=== PATIENT | male | born 1965 | race Caucasian/White ===

== ENCOUNTER 2022-02-09 07:56 | Outpatient (CLI) | payer MEDICARE, MEDICAID, SELFPAY | END 2022-02-09 07:57 | disposition home or self-care (01) | PROVIDERS: Visit Provider Surgery | DX: L89.154 Pressure ulcer of sacral region, stage 4 (principal); G80.9 Cerebral palsy, unspecified | CPT/HCPCS: 11042; 99203; 99205 ==

== ENCOUNTER 2022-02-16 09:50 | Outpatient (CLI) | payer MEDICARE, MEDICAID, SELFPAY | END 2022-02-16 09:51 | disposition home or self-care (01) | LOC: WOUND 09:51 | PROVIDERS: Visit Provider Surgery | DX: L89.154 Pressure ulcer of sacral region, stage 4 (principal); G80.9 Cerebral palsy, unspecified | CPT/HCPCS: 11042 ==

== ENCOUNTER 2022-02-23 09:48 | Outpatient (CLI) | payer MEDICARE, MEDICAID, SELFPAY ==
--- NOTE | 2022-02-23 10:52 | P.GSHP_ITS ---
History of Present Illness History of Present Illness Date Seen: 02/23/22 Chief complaint: wound infection Narrative: Aditya Bearden is a 56 year old male who presented to wound clinic for a scheduled appointment. He has a stage 4 decubitus ulcer of the coccyx and was 1st seen at the wound clinic on 02/09/2022. He has undergone 2 debridements at bedside and further workup with an MRI of the pelvis secondary to concern for involvement of the bone. An MRI was obtained, which did demonstrate osteomyelitis of the coccyx and sacrum. The patient has cerebral palsy and is nonverbal. He is bed bound, but sits up in a chair for meals and transfers via wheelchair. A nurse is present from his long-term, who states that he has been having fevers (T-max 101.3?) that started 2 days earlier. This fevers have been controlled with Tylenol. He is otherwise eating okay and having bowel mo vements. He does seem to be having increased tenderness and drainage from his decubitus ulcer. There is also a foul odor. Review of Systems Status of ROS: Reports: unobtainable due to medical condition and unobtainable due to mental status [facility] Medical History (Updated 02/23/22 @ 15:09 by Delfina Antonio MD) Cerebral palsy Constipation, chronic Epilepsy Osteopenia Periodontal disease Surgical History (Updated 02/23/22 @ 15:18 by Delfina Antonio MD) H/O parathyroidectomy Social History Highest level of school completed/degree received: don't know Smoking Status: Unknown if ever smoked How often do you have a drink containing alcohol: never How often do you have six or more drinks on one occasion: Never AUDIT-C Alcohol total score: 0 service: No Meds Home Medications and Allergies Home Medications Medication Instructions Recorded Confirmed Type calcium carbonate 600 mg-vitamin 1 tab PO DAILY 02/23/22 02/23/22 History D3 10 mcg (400 unit) tablet carbamide peroxide 6.5 % ear drops 5 drp otic (ear) HS PRN 02/23/22 02/23/22 History (Ear Drops (carbamide peroxide)) chlorhexidine gluconate 0.12 % 30 ml buccal DAILY 02/23/22 02/23/22 History mouthwash docusate sodium 100 mg capsule 100 mg PO TID 02/23/22 02/23/22 History fluoride (sodium) 1.1 % dental gel 1 applic dental HS 02/23/22 02/23/22 History lamotrigine 100 mg tablet 100 mg PO TID 02/23/22 02/23/22 History lorazepam 1 mg tablet 1 mg PO PRN 02/23/22 02/23/22 History mirtazapine 15 mg tablet 15 mg PO HS 02/23/22 02/23/22 History polyethylene glycol 3350 17 17 g PO QPM 02/23/22 02/23/22 History gram/dose oral powder sodium phosphates 19 gram-7 118 ml RI DAILY PRN constipation 02/23/22 02/23/22 History gram/118 mL enema (Enema Disposable) Allergies Allergy/AdvReac Type Severity Reaction Status Date / Time erythromycin base Allergy Unknown Verified 02/23/22 13:19 sulfamethoxazole Allergy Unknown Verified 02/23/22 13:18 [From Bactrim] terfenadine [From Seldane] Allergy Unknown Verified 02/23/22 13:19 trimethoprim [From Bactrim] Allergy Unknown Verified 02/23/22 13:18 Exam Narrative: Exam Narrative: General: Patient nontoxic, nonverbal and non aware. Lying in bed. Respiratory: Equal breath rise bilaterally, maintained on room air CV: Regular rhythm rate, well perfused Abdomen: Soft, nontender, nondistended Genitourinary: Decubitus ulcer, stage IV of the coccyx. Underlying bone palpated an area very tender to palpation. There is tunneling at 12:00 p.m. with associated necrotic tissue and some purulent drainage noted. No undrained fluid cavities. Foul odor. Some surrounding erythema and induration. Overall tenderness during examination and at the wound base. Results Results Labs: No evidence of leukocytosis. CRP is elevated at 6 and ESR pending. BMP is still pending. Additional studies: MRI of the pelvis demonstrates posterior pelvic decubitus ulcer with underlying coccygeal osteomyelitis and osteomyelitis of the 5th sacral segment. Muscle changes consistent with myositis also present. Assessment and Plan Assessment and plan (1) Osteomyelitis: Status: Acute Plan Patient is a 56-year-old male, nonverbal and bed-bound secondary to cerebral palsy, who presented to Wound Clinic for check of his sacral decubitus ulcer. Evidence on examination of a moderate amount of necrotic tissue and foul odor. Workup done with an MRI of the pelvis, which demonstrates an underlying osteomyelitis. Given the patient's clinical symptoms of increasing tenderness, foul odor, increased drainage and fevers will start some IV antibiotics. Will plan for broad-spectrum and narrow as appropriate per cultures. Patient will likely need a prolonged course of IV antibiotics, 4-6 weeks, so will also pursue PICC line placement during this hospital stay. Given the extent of necrosis present on the wound bed, will plan for debridement in the operating room under mac anesthesia. Patient to be NPO at midnight and plan to take to the OR tomorrow morning. He has been consented by his guardian, Ivis (mom) over the phone. The hospitalist has been consulted and is following, appreciate their assistance with his medical comorbidities and other cares.
[2022-02-23 11:49] LABS: SARS PCR* Negative SARS-CoV-2 (Negative)
== END 2022-02-23 09:49 | disposition home or self-care (01) ==
PROVIDERS: Visit Provider Surgery
DX: M46.28 Osteomyelitis of vertebra, sacral and sacrococcygeal region (principal); L89.154 Pressure ulcer of sacral region, stage 4; G80.9 Cerebral palsy, unspecified
CPT/HCPCS: 85025; 85651; 86140; 87040; 87186; 87205; 87635; 99215

== ENCOUNTER 2022-02-23 12:25 | Inpatient (IN) | payer MEDICARE, MEDICAID, SELFPAY ==
[2022-02-23 13:00] VITALS: PULSE 72; RESP 18; TEMP 37.6; O2SAT 97; BMI 21.2
--- NOTE | 2022-02-23 14:39 | P.IMCN_ITS ---
Date of Consult Consult date: 02/23/22 Requesting Physician: General Surgery Consult Narrative Reason for consult: Medical management of comorbidities Narrative: Aditya Bearden is a 56 year old male was direct admitted to the hospital today by Dr. Ramos of general surgery after being seen in the Wound Care Clinic. History is primarily gleaned from chart review, given patient's nonverbal status. Patient has had a sacral wound for approximately 3 weeks, seen in the Wound Clinic today with concerns of sacral osteomyelitis. Cultures were collected in clinic, and surgery is planned for tomorrow morning for an I&D. Hospitalist team was consulted given comorbidities and need for long-term IV antibiotics. Patient's past medical history includes cerebral palsy, seizure disorder, history of hypercalcemia secondary to hyperparathyroidism, nonverbal status, periodontal disease, and chronic constipation. He had acute kidney injury in 2018, but creatinine since then has been normal. Aditya had a parathyroidectomy in 2010, no reports of operative or anesthesia complications. Patient lives in a half-way in [place]. His primary nurse is Aure ([phone]), mother Ivis ([phone]) is medical decision maker and POA. He is in a motorized wheelchair, diet is minced and moist, as well as thickened. Aure states that patient has done well with NPO status in the past when needed, he is also tolerated IV access in the past. He is on no blood thinners. He typically does not have any movements or behaviors that indicate pain. He enjoys watching television. Review of Systems Status of ROS: Reports: unobtainable due to medical condition [facility] Medical History (Updated 02/23/22 @ 15:09 by Delfina Antonio MD) Cerebral palsy Constipation, chronic Epilepsy Osteopenia Periodontal disease Surgical History (Updated 02/23/22 @ 15:18 by Delfina Antonio MD) H/O parathyroidectomy Meds Home Medications and Allergies Home Medications Medication Instructions Recorded Confirmed Type calcium carbonate 600 mg-vitamin 1 tab PO DAILY 02/23/22 02/23/22 History D3 10 mcg (400 unit) tablet carbamide peroxide 6.5 % ear drops 5 drp otic (ear) HS PRN 02/23/22 02/23/22 History (Ear Drops (carbamide peroxide)) chlorhexidine gluconate 0.12 % 30 ml buccal DAILY 02/23/22 02/23/22 History mouthwash docusate sodium 100 mg capsule 100 mg PO TID 02/23/22 02/23/22 History fluoride (sodium) 1.1 % dental gel 1 applic dental HS 02/23/22 02/23/22 History lamotrigine 100 mg tablet 100 mg PO TID 02/23/22 02/23/22 History lorazepam 1 mg tablet 1 mg PO PRN 02/23/22 02/23/22 History mirtazapine 15 mg tablet 15 mg PO HS 02/23/22 02/23/22 History polyethylene glycol 3350 17 17 g PO QPM 02/23/22 02/23/22 History gram/dose oral powder sodium phosphates 19 gram-7 118 ml AR DAILY PRN constipation 02/23/22 02/23/22 History gram/118 mL enema (Enema Disposable) Allergies Allergy/AdvReac Type Severity Reaction Status Date / Time erythromycin base Allergy Unknown Verified 02/23/22 13:19 sulfamethoxazole Allergy Unknown Verified 02/23/22 13:18 [From Bactrim] terfenadine [From Seldane] Allergy Unknown Verified 02/23/22 13:19 trimethoprim [From Bactrim] Allergy Unknown Verified 02/23/22 13:18 Exam Narrative: Exam Narrative: GEN: Alert and laying comfortably in bed, no pain mitigating movements. Nonverbal HEENT: Normal external ears, EOMIs bilaterally, no scleral icterus CV: RRR, No concerning murmurs, rubs, or gallops R: LCTA bilaterally without concerning wheezing, rales, or rhonchi. Breathing comfortably in bed Ab: soft, nontender, no masses Ext: + spasticity of all four extremities, wearing braces on bilateral wrists Skin: Formal wound exam not performed as patient seen by General Surgery just prior to consult Neuro: Appropriate for baseline and chronic conditions, normal peripheral pulses and capillary refill in all 4 extremities Assessment and Plan Assessment and plan (1) Pressure ulcer: Status: Acute (2) Cerebral palsy: Status: Acute (3) Epilepsy: Problem comment: last documented seizure in 2004 Status: Acute (4) Constipation, chronic: Status: Acute (5) Osteomyelitis: Status: Acute Plan 56-year-old male admitted with sacral ulcer concerning for osteomyelitis. Cultures have been collected and are pending. Recommend PICC line placement for IV antibiotics; initiate treatment with vancomycin and ceftriaxone, transition antibiotics after cultures are resulted and Infectious Disease can be consulted. Continue home medications for above-mentioned comorbidities. Patient is a surgery in the past without significant anesthetic or surgical complications, he is not on any blood thinners, has no cardiac or respiratory disease per chart review. Patient appears medically optimized for surgery and anesthesia, he will remain NPO after midnight.
[2022-02-23 15:08] LABS: Basophils Absolute Auto 0.04 K/uL (0.00-0.30); Basophils Percent Auto 0.5 % (0.0-3.0); Eosinophils Absolute Auto 0.11 K/uL (0.00-0.50); Eosinophils Percent Auto 1.3 % (0.0-7.0); Hematocrit 36.6 % (37.0-53.0); Hemoglobin* 12.1 gm/dL (13.5-17.5); Immature Granulocytes Abs Auto 0.05 K/uL (0.00-0.30); Lymphocytes Absolute Auto 1.74 K/uL (0.90-2.90); Lymphocytes Percent Auto 20.9 % (20-44); Mean Corpuscular HGB Conc 33 gm/dL (32-36); Mean Corpuscular Hemoglobin 32 pg (26-34); Mean Corpuscular Volume 97 fL (80-100); Monocytes Percent Auto 8.1 % (0.0-11.0); Neutrophils Absolute Auto 5.71 K/uL (1.7-7.0); Neutrophils Percent Auto 68.6 % (42.0-72.0); Platelet Count* 282 K/uL (140-440); RDW Coefficient of Variation % 14.1 % (11.5-15.5); Red Blood Count 3.78 m/uL (4.30-5.90); White Blood Count* 8.32 K/uL (4.50-11.00)
[2022-02-23 15:12] LABS: Slide Review Reflex No
[2022-02-23 16:07] LABS: Albumin* 2.9 g/dL (3.3-5.0); Chloride* 107 mmol/L (96-114); Potassium* 3.9 mmol/L (3.6-5.1); Sodium* 140 mmol/L (135-149)
[2022-02-23 16:09] LABS: Creatinine* 0.6 mg/dL (0.5-1.5); Est. Creatinine Clearance* 122.33; Estimated Glomerular Filt Rate 115 ml/min
[2022-02-23 16:10] LABS: Alanine Aminotransferase* 16 U/L (4-50); Alkaline Phosphatase* 81 U/L (40-150); Aspartate Amino Transferase* 33 U/L (12-35); Bilirubin Total* 0.2 mg/dL (0.1-1.5); Blood Urea Nitrogen* 23 mg/dL (7-30); Calcium* 8.9 mg/dL (8.4-10.6); Carbon Dioxide* 26 mmol/L (20-32); Glucose* 86 mg/dL (60-115); Total Protein* 6.9 g/dL (6.0-8.3)
[2022-02-23 16:20] LABS: Erythrocyte SedimentationRate* 83 mm/hr (2-15)
--- NOTE | 2022-02-23 17:30 | CRLHL7_ITS ---
For Patients: As a result of the Century Cures Act, medical imaging exams and procedure reports are released immediately into your electronic medical record. You may view this report before your referring provider. If you have questions, please contact your health care provider. INDICATION: Right upper extremity pain and swelling. TECHNIQUE: Ultrasound venous upper right extremity limited. Sonographic images of the right basilic and internal jugular vein regions using grayscale imaging. COMPARISON: None. FINDINGS/IMPRESSION: Right PICC line visualized in the right basilic vein. No evidence of displacement into the right internal jugular vein. Dictated by Octavio Navarro MD @ 02/23/2022 8:00:43 PM (Electronically Signed)
[2022-02-23] MEDS: lamoTRIgine 100 MG TABLET PO ×2 (17:43→21:16)
--- NOTE | 2022-02-23 18:36 | PC.NURSE ---
shift note: vss stable. pt nonverbal. Pt t&r q2hrs. Pt has large sacral ulcer that was packed and dressed with sacral mepilex by wound clinic prior to admit. small amount of drainage shadowed on mepilex. pt has contractures to u/e and l/e bilat. pt wears wrist braces at all times per skilled nursing nurse. PP intact but faint. bilat feet cool to touch. Pt has clr LS bilat. HR regular. Pt incont of B&B. Pt needing complete assist with feeding.
--- NOTE | 2022-02-23 19:07 | CRLHL7_ITS ---
For Patients: As a result of the Century Cures Act, medical imaging exams and procedure reports are released immediately into your electronic medical record. You may view this report before your referring provider. If you have questions, please contact your health care provider. INDICATION: PICC placement. TECHNIQUE: Chest 1 view. COMPARISON: None. FINDINGS: Cardiovascular and mediastinum: Heart size and vasculature are normal in caliber and appearance. Right upper extremity PICC tip projects over the cavoatrial region. Lungs and pleural spaces: Lungs are clear. No sign of infiltrate or mass. No sign of pleural effusion. No pneumothorax. Bones and soft tissues: No significant findings. IMPRESSION: 1. Right upper extremity PICC tip projects over the cavoatrial region. 2. No acute cardiopulmonary abnormality. Dictated by Octavio Navarro MD @ 02/23/2022 8:02:08 PM (Electronically Signed)
[2022-02-23 19:47] VITALS: BP 123/77; PULSE 91; RESP 18; TEMP 37.7; O2SAT 94
[2022-02-23] MEDS: cefTRIAXone 2 GM in 0.9 % SODIUM CHLORIDE Mini-bag 100 ML IVPB (20:12)
--- NOTE | 2022-02-23 20:16 | PC.NURSE ---
shift note: time out for picc procedure done @ 1900. Verified site, name, allergies and consent. US present during insertion. Pt tolerated procedure well.
[2022-02-23 21:17] VITALS: TEMP 37.7
[2022-02-23] MEDS: DOCUSATE SODIUM 100 MG CAPSULE PO (21:17)
[2022-02-23] MEDS: MIRTAZAPINE 15 MG TABLET PO (21:17)
[2022-02-23] MEDS: ACETAMINOPHEN 325 MG TABLET PO (21:17)
[2022-02-23] MEDS: polyethylene glycoL 3350 17 GM PACK PO (21:20)
[2022-02-23 22:28] VITALS: TEMP 37.2
[2022-02-23 22:49] VITALS: PULSE 68; RESP 18
[2022-02-23 23:49] VITALS: BP 107/62; PULSE 75; RESP 18; TEMP 37.2; O2SAT 94
[2022-02-24] VITALS (16 sets, daily range): BP systolic 96–122; BP diastolic 49–74; PULSE 75–93; RESP 18–30; TEMP 36.4–37.9; O2SAT 92–98
--- NOTE | 2022-02-24 06:28 | PC.NURSE ---
Pt is non-verbal. Tmax overnight was 100 and managed with Tylenol. No signs of pain noted. vitals stable. Abx administered as per orders. Wound dressing changed twice; moderate secretions noted. NPO since midnight. Respositioned Q2H and continence maintained. No further concerns
[2022-02-24] MEDS: LACTATED RINGERS 1000 ML 1,000 ML 100 ML IV (07:02)
[2022-02-24] MEDS: BUPIVACAINE 0.25% 30 ML 7 ML INJECTION (07:30)
--- NOTE | 2022-02-24 07:43 | PM.GSPRC ---
Operative Note Date of procedure: 02/24/22 Type of Procedure: Excisional debridement of sacral decubitus ulcer Procedure Description: After discussing the risks and benefits of the procedure, the patient signed informed consent.? The operative site was marked and the patient was brought to the operating room and placed on the operating table in supine position.? Care was taken to pad the patient's pressure points.?? The patient was then sedated by anesthesia.?? The operative site was then prepped and draped in the usual sterile fashion.? A time-out was then performed. The area was prepped with the Hibiclens scrub. Local anesthesia of 1% lidocaine and 0.25% bupivacaine was given areas evidence of moderate amount of necrotic tissue around the decubitus ulcer and foul odor. There was also evidence of bony involvement, confirming the diagnosis of osteomyelitis. All necrotic subcutaneous tissue and bone was sharply debrided back to healthy, bleeding tissue. A bone biopsy was taken and sent for culture. Once all necrotic tissue was debrided hemostasis was controlled with pressure and electrocautery. Wound measurements were approximately 7 cm x 5 cm x 4 cm. The wound was packed with Vashe soaked gauze and an overlying ABD dressing. ? The patient was then woken and transported to the recovery area in stable condition. ? The patient tolerated the procedure well. Findings: Stage IV decubitus ulcer with associated necrosis and infection of subcutaneous tissue and bone. Surgeon: Estelle Ramos MD Estimated blood loss (mL): 15 Condition: stable Disposition: floor
--- NOTE | 2022-02-24 08:01 | W.ANESCHARGE ---
Anesthesia Charges Start Date/Time Anesthesia Start Date: 02/24/22 Anesthesia Start Time: 07:01 Stop Date/Time Anesthesia Stop Date: 02/24/22 Anesthesia Stop Time: 07:55 Summary Emergency: No
[2022-02-24 08:45] LABS: Lab Add On Test New Spec Needed
--- NOTE | 2022-02-24 08:57 | W.ANESCHARGE ---
Anesthesia Charges Start Date/Time Anesthesia Start Date: 02/24/22 Anesthesia Start Time: 07:01 Stop Date/Time Anesthesia Stop Date: 02/24/22 Anesthesia Stop Time: 07:55 Summary Emergency: No
[2022-02-24 09:10] LABS: Creatine Kinase* 70 U/L (54-186)
[2022-02-24] MEDS: lamoTRIgine 100 MG TABLET PO ×3 (10:36→21:04)
[2022-02-24] MEDS: DOCUSATE SODIUM 100 MG CAPSULE PO ×3 (10:36→21:04)
--- NOTE | 2022-02-24 12:51 | PM.IMPN1 ---
Progress Note: A&P Assessment and plan (1) Osteomyelitis: Status: Acute Assessment and Plan: Continue antibiotic with vancomycin or daptomycin and ceftriaxone pending cultures. Outpatient antibiotics targeted to results of cultures and likely organisms. Ideally daily antibiotics with daptomycin and or ceftriaxone. (2) Pressure ulcer: Status: Acute Assessment and Plan: Continue to reposition to avoid pressure and allow healing (3) Cerebral palsy: Status: Acute Assessment and Plan: Continue routine cares, feedings, medication routines (4) Epilepsy: Problem details: last documented seizure in 2004 Status: Acute Assessment and Plan: Continue routine medications (5) Constipation, chronic: Status: Acute Assessment and Plan: Continue routine medications Time Spent With Patient Total time spent: Total time spent today is 40 minutes, 35 minutes in coordination of care and discussing with other providers management of postoperative care Subjective Date Seen: 02/24/22 Interval history: 56-year-old male seen in followup of osteomyelitis of the sacrum. When I see him he has just come out of the operating room where he had some surgical debridement of his sacral osteomyelitis. Initial plan was to provide a wound VAC but that was not deemed beneficial and so he has just normal dressings in this area. Patient is nonverbal. Nurses do not note any significant distress. He did have a low-grade fever during the night. Exam Narrative: Exam Narrative: He is lying in bed on his right side. He is alert but not responding significantly to my interactions with him. He appears in no distress. Respirations are clear to auscultation. No wheezing rales rhonchi. Cardiovascular: S1, S2, regular rate and rhythm. Abdomen: Bowel sounds active. Abdomen is soft without tenderness or mass. Upper and lower extremities both with significant flexion contractures. Feet and hands are well perfused however trace edema is noted. Const: Vital Signs, click to edit/add: Vital Signs - 24 hr 02/23/22 13:00 02/23/22 13:00 02/23/22 21:17 Temperature 99.6 F 100 F H Pulse Rate [Left B rachial] 72 Pulse Rate [Pulse Oximeter] Respiratory Rate 18 18 Blood Pressure [Le ft Arm] Blood Pressure [Ri ght Forearm] Pulse Oximetry 97 97 Oxygen Delivery Me thod Room Air Room Air 02/23/22 22:28 02/23/22 22:49 02/23/22 19:47 Temperature 99.0 F 100 F H Pulse Rate [Left B rachial] 68 91 Pulse Rate [Pulse Oximeter] Respiratory Rate 18 18 Blood Pressure [Le ft Arm] 123/77 Blood Pressure [Ri ght Forearm] Pulse Oximetry 94 Oxygen Delivery Me thod Room Air 02/23/22 23:49 02/24/22 04:00 02/24/22 04:00 Temperature 99.0 F 99.0 F 98.9 F Pulse Rate [Left B rachial] 75 75 85 Pulse Rate [Pulse Oximeter] Respiratory Rate 18 18 18 Blood Pressure [Le ft Arm] 107/62 122/74 122/74 Blood Pressure [Ri ght Forearm] Pulse Oximetry 94 94 92 Oxygen Delivery Me thod Room Air Room Air Room Air 02/24/22 07:55 02/24/22 08:00 02/24/22 08:15 Temperature 99.3 F 99.3 F 99.3 F Pulse Rate [Left B rachial] 85 84 84 Pulse Rate [Pulse Oximeter] Respiratory Rate 22 22 28 H Blood Pressure [Le ft Arm] 98/57 L 98/54 L 102/49 L Blood Pressure [Ri ght Forearm] Pulse Oximetry 98 97 97 Oxygen Delivery Me thod Room Air Room Air Room Air 02/24/22 07:00 02/24/22 08:46 02/24/22 08:30 Temperature 99.5 F Pulse Rate [Left B rachial] 84 83 Pulse Rate [Pulse Oximeter] Respiratory Rate 24 28 H 24 Blood Pressure [Le ft Arm] 102/55 L Blood Pressure [Ri ght Forearm] Pulse Oximetry 98 Oxygen Delivery Me thod Room Air 02/24/22 08:45 02/24/22 09:00 02/24/22 11:15 Temperature 99.5 F 99.5 F 99.5 F Pulse Rate [Left B rachial] 83 82 Pulse Rate [Pulse Oximeter] 83 Respiratory Rate 24 24 30 H Blood Pressure [Le ft Arm] 96/54 L 98/57 L Blood Pressure [Ri ght Forearm] 110/51 L Pulse Oximetry 98 98 96 Oxygen Delivery Me thod Room Air Room Air Room Air Documenting provider has reviewed patient's vital signs: yes Labs Labs: Laboratory Results - last 24 hr 02/23/22 02/23/22 02/23/22 14:15 14:15 14:15 WBC 8.32 RBC 3.78 L Hgb 12.1 L Hct 36.6 L MCV 97 MCH 32 MCHC 33 RDW Coeff of Emmanuel 14.1 Plt Count 282 Neut % (Auto) 68.6 Lymph % (Auto) 20.9 [place] % (Auto) 8.1 Eos % (Auto) 1.3 Baso % (Auto) 0.5 Neut # (Auto) 5.71 Lymph # (Auto) 1.74 [place] # (Auto) 0.70 Eos # (Auto) 0.11 Baso # (Auto) 0.04 Abs Immat Gran (auto) 0.05 ESR 83 H Sodium 140 Potassium 3.9 Chloride 107 Carbon Dioxide 26 BUN 23 Creatinine 0.6 Estimated Creat Clear 122.33 Estimated GFR 115 Glucose 86 Calcium 8.9 Total Bilirubin 0.2 AST 33 ALT 16 Alkaline Phosphatase 81 Total Creatine Kinase C-Reactive Protein 6.0 H Total Protein 6.9 Albumin 2.9 L 02/24/22 08:40 WBC RBC Hgb Hct MCV MCH MCHC RDW Coeff of Emmanuel Plt Count Neut % (Auto) Lymph % (Auto) [place] % (Auto) Eos % (Auto) Baso % (Auto) Neut # (Auto) Lymph # (Auto) [place] # (Auto) Eos # (Auto) Baso # (Auto) Abs Immat Gran (auto) ESR Sodium Potassium Chloride Carbon Dioxide BUN Creatinine Estimated Creat Clear Estimated GFR Glucose Calcium Total Bilirubin AST ALT Alkaline Phosphatase Total Creatine Kinase 70 C-Reactive Protein Total Protein Albumin
[2022-02-24] MEDS: ACETAMINOPHEN 325 MG TABLET PO (15:05)
--- NOTE | 2022-02-24 19:00 | PC.NURSE ---
End of Shift: Patient pleasant and cooperative. Patient vitally stable, lungs clear, BS WNL, PICC SL and intact. Patient nonverbal and on RA. Patient had a temp of 99.9 tylenol was given then 54 minutes later temp was 100.2, later temp was in the 80s. Patient was very sweaty with temp check of 100.2, gown and pillows soiled. Patient had 2 small BM's and two urines. Wound cleaned with vashe and packed with kerlix soaked in vashe, abd pad taped over packing. A new abd pad was applied later as abd pad with wound care was soiled. Patient has pad applied between legs to catch urine and stool, no diaper of brief used.
[2022-02-24] MEDS: cefTRIAXone 2 GM in 0.9 % SODIUM CHLORIDE Mini-bag 100 ML IVPB (19:59)
[2022-02-24] MEDS: MIRTAZAPINE 15 MG TABLET PO (21:04)
[2022-02-24] MEDS: polyethylene glycoL 3350 17 GM PACK PO (21:04)
[2022-02-25 04:00] VITALS: BP 114/66; PULSE 80; RESP 20; TEMP 35.8; O2SAT 96
--- NOTE | 2022-02-25 06:46 | PC.NURSE ---
No new concerns overnight. Afebrile tonight. Vitals stable. Wound cares as per orders; dressing CDI. No signs of pain noted.
[2022-02-25 07:28] LABS: Basophils Absolute Auto 0.03 K/uL (0.00-0.30); Basophils Percent Auto 0.5 % (0.0-3.0); Eosinophils Absolute Auto 0.13 K/uL (0.00-0.50); Eosinophils Percent Auto 2.3 % (0.0-7.0); Hematocrit 31.4 % (37.0-53.0); Hemoglobin* 10.5 gm/dL (13.5-17.5); Immature Granulocytes Abs Auto 0.07 K/uL (0.00-0.30); Lymphocytes Absolute Auto 1.61 K/uL (0.90-2.90); Lymphocytes Percent Auto 28.5 % (20-44); Mean Corpuscular HGB Conc 33 gm/dL (32-36); Mean Corpuscular Hemoglobin 32 pg (26-34); Mean Corpuscular Volume 96 fL (80-100); Monocytes Percent Auto 7.1 % (0.0-11.0); Neutrophils Percent Auto 60.4 % (42.0-72.0); Platelet Count* 248 K/uL (140-440); RDW Coefficient of Variation % 14.2 % (11.5-15.5); Red Blood Count 3.28 m/uL (4.30-5.90); White Blood Count* 5.64 K/uL (4.50-11.00)
[2022-02-25 07:33] LABS: Slide Review Reflex No
[2022-02-25 07:41] LABS: Chloride* 108 mmol/L (96-114)
[2022-02-25 07:42] LABS: Potassium* 3.7 mmol/L (3.6-5.1); Sodium* 141 mmol/L (135-149)
[2022-02-25 07:44] LABS: Creatinine* 0.6 mg/dL (0.5-1.5); Est. Creatinine Clearance* 122.33; Estimated Glomerular Filt Rate 115 ml/min
[2022-02-25 07:45] LABS: Blood Urea Nitrogen* 18 mg/dL (7-30); Carbon Dioxide* 28 mmol/L (20-32); Glucose* 86 mg/dL (60-115)
[2022-02-25 07:59] LABS: C Reactive Protein* 12.8 mg/dL (0.5-1.0)
[2022-02-25 08:00] VITALS: BP 118/70; PULSE 78; RESP 18; TEMP 36.9; O2SAT 95
[2022-02-25] MEDS: DOCUSATE SODIUM 100 MG CAPSULE PO ×3 (09:09→20:50)
[2022-02-25] MEDS: lamoTRIgine 100 MG TABLET PO ×3 (09:11→20:50)
--- NOTE | 2022-02-25 13:40 | PM.GSPN ---
Subjective Subjective Date Seen: 02/25/22 Interval history: No overnight events. Nurses completing dressing change mid day. Exam Narrative: Exam Narrative: General: Alert, no acute distress Skin: Sacral wound appears beefy red. No erythema. No purulence. Const: Vital Signs, click to edit/add: Vital Signs - 24 hr 02/24/22 15:05 02/24/22 15:00 02/24/22 15:00 Temperature 99.9 F H 99.9 F H Pulse Rate [Left B rachial] Pulse Rate [Pulse Oximeter] 93 93 Respiratory Rate 28 H 28 H Blood Pressure [Le ft Arm] Blood Pressure [Ri ght Forearm] 102/63 Pulse Oximetry 96 Oxygen Delivery Me thod Room Air 02/24/22 16:56 02/24/22 17:28 02/24/22 22:20 Temperature 100.2 F H 100.2 F H Pulse Rate [Left B rachial] 82 Pulse Rate [Pulse Oximeter] 80 Respiratory Rate 20 Blood Pressure [Le ft Arm] Blood Pressure [Ri ght Forearm] Pulse Oximetry Oxygen Delivery Me thod 02/24/22 22:48 02/25/22 04:00 02/25/22 08:00 Temperature 97.6 F 96.5 F L 98.5 F Pulse Rate [Left B rachial] 76 80 78 Pulse Rate [Pulse Oximeter] 76 80 78 Respiratory Rate 20 20 18 Blood Pressure [Le ft Arm] 107/63 114/66 118/70 Blood Pressure [Ri ght Forearm] Pulse Oximetry 96 96 95 Oxygen Delivery Me thod Room Air Room Air Room Air Progress Note: A&P Assessment and plan (1) Osteomyelitis: Status: Acute (2) Pressure ulcer: Status: Acute (3) Cerebral palsy: Status: Acute Plan The patient is a 56-year-old male with a stage IV decubitus ulcer and associated osteomyelitis postop day 1 status post debridement. His wound appears beefy pink. -continue b.i.d. dressing changes with Vashe -continue IV antibiotics until surgical culture speciated
--- NOTE | 2022-02-25 13:41 | P.IMPN_ITS ---
Progress Note: A&P Assessment and plan (1) Osteomyelitis: Status: Acute Assessment and Plan: Cultures are showing polymicrobial infection so far. Proteus mirabilis which is pansensitive was identified from initial wound culture. Pending ID and sensit ivity for other organisms. For now will continue ceftriaxone and vancomycin. Recommend daptomycin for outpatient treatment if needed for coverage for MRSA (2) Pressure ulcer: Status: Acute Assessment and Plan: Continue good nursing care and surgical evaluation and treatment inpatient and outpatient (3) Cerebral palsy: Status: Acute Assessment and Plan: Stable (4) Epilepsy: Problem details: last documented seizure in 2004 Status: Acute Assessment and Plan: Stable (5) Constipation, chronic: Status: Acute Assessment and Plan: Continue to monitor Plan Disposition plan has been challenging. Once ID and sensitivities are available I think reasonable antibiotic choices can be made that could be done possibly once a day. There is concern from the long-term whether he can return there. Will need to continue to work with social services aide to assess a discharge plan. 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 Patient has been generally doing well. Getting routine nursing cares. Dr. Cortez evaluated his sacral wound today and said it looked good. There are no new concerns from nursing staff. Exam Narrative: Exam Narrative: He is lying in bed and alert. Nonverbal. Appears in no discomfort. Respirations are clear to auscultation. Cardiovascular: S1, S2, regular rate and rhythm. No murmur gallop or rub. Abdomen: Bowel sounds active. Abdomen is soft without tenderness or mass. Sacral wound is not evaluated today. Upper and lower extremity contractures noted. Good peripheral perfusion in all 4 extremities. No rash. Const: Vital Signs, click to edit/add: Vital Signs - 24 hr 02/24/22 15:05 02/24/22 15:00 02/24/22 15:00 Temperature 99.9 F H 99.9 F H Pulse Rate [Left B rachial] Pulse Rate [Pulse Oximeter] 93 93 Respiratory Rate 28 H 28 H Blood Pressure [Le ft Arm] Blood Pressure [Ri ght Forearm] 102/63 Pulse Oximetry 96 Oxygen Delivery Me thod Room Air 02/24/22 16:56 02/24/22 17:28 02/24/22 22:20 Temperature 100.2 F H 100.2 F H Pulse Rate [Left B rachial] 82 Pulse Rate [Pulse Oximeter] 80 Respiratory Rate 20 Blood Pressure [Le ft Arm] Blood Pressure [Ri ght Forearm] Pulse Oximetry Oxygen Delivery Me thod 02/24/22 22:48 02/25/22 04:00 02/25/22 08:00 Temperature 97.6 F 96.5 F L 98.5 F Pulse Rate [Left B rachial] 76 80 78 Pulse Rate [Pulse Oximeter] 76 80 78 Respiratory Rate 20 20 18 Blood Pressure [Le ft Arm] 107/63 114/66 118/70 Blood Pressure [Ri ght Forearm] Pulse Oximetry 96 96 95 Oxygen Delivery Me thod Room Air Room Air Room Air Documenting provider has reviewed patient's vital signs: yes Labs Labs: Laboratory Results - last 24 hr 02/25/22 02/25/22 06:49 06:49 WBC 5.64 RBC 3.28 L Hgb 10.5 L Hct 31.4 L MCV 96 MCH 32 MCHC 33 RDW Coeff of Emmanuel 14.2 Plt Count 248 Neut % (Auto) 60.4 Lymph % (Auto) 28.5 [place] % (Auto) 7.1 Eos % (Auto) 2.3 Baso % (Auto) 0.5 Neut # (Auto) 3.40 Lymph # (Auto) 1.61 [place] # (Auto) 0.40 Eos # (Auto) 0.13 Baso # (Auto) 0.03 Abs Immat Gran (auto) 0.07 Sodium 141 Potassium 3.7 Chloride 108 Carbon Dioxide 28 BUN 18 Creatinine 0.6 Estimated Creat Clear 122.33 Estimated GFR 115 Glucose 86 Calcium 8.0 L C-Reactive Protein 12.8 H
--- NOTE | 2022-02-25 14:06 | PC.NURSE ---
shift note: pt had temp 99 this a.m. Pt t&r q2hrs to assist in healing/comfort. Pt tolerated diet. LS clr. drsg to sacrum performed with vashe soaked 4x4's packed into wound bed then covered with abd pad. Dr. Cortez present during drsg change to assess wound.
[2022-02-25 15:00] VITALS: BP 117/73; PULSE 92; RESP 22; TEMP 37.2; O2SAT 92
[2022-02-25 15:21] VITALS: BMI 21.2
--- NOTE | 2022-02-25 15:36 | PC.SOCIAL ---
Social work: Received call from [facility] director, [phone], stating they can not accept pt back due to his needs. toll test desk worker explained there is no change in wound care and the IV abx will be arranged out-pt. Jocelynn states they are unable to accept pt back due to staffing and not having licensed staff in the building all the time. Jocelynn states she has spoken with pt's [facility] social security assessor, Norma Sanchez [phone] who is looking into other residential options for pt and is aware he can not return to his [facility]. Called Norma and left message requesting call back regarding d/c plan and arrangements she is working on. toll test desk worker to follow up as needed.
[2022-02-25 19:35] VITALS: BP 125/76; PULSE 91; RESP 20; TEMP 37.6; O2SAT 91
[2022-02-25] MEDS: cefTRIAXone 2 GM in 0.9 % SODIUM CHLORIDE Mini-bag 100 ML IVPB (20:48)
[2022-02-25] MEDS: MIRTAZAPINE 15 MG TABLET PO (20:50)
[2022-02-25] MEDS: polyethylene glycoL 3350 17 GM PACK PO (20:50)
[2022-02-25 23:13] VITALS: PULSE 89; PULSE 92; RESP 20; O2SAT 92
--- NOTE | 2022-02-26 06:49 | PC.NURSE ---
Shift note: The pt has been resting well comfortable throughout the shift. He is incontinent of B & B. Wet to dry Wound dressing, completed last evening- small blood noted on the old dressing; the pt tolerated the procedure . The pt has been non-verbal , he has been taking whole pills with apple sauce with the head of the bed raised 90 degree. This AM the was sweaty, blanket was taken off, room temp turned down
[2022-02-26 07:00] VITALS: BP 121/68; PULSE 80; RESP 20; TEMP 36.9; O2SAT 94
[2022-02-26 07:01] LABS: Basophils Absolute Auto 0.03 K/uL (0.00-0.30); Basophils Percent Auto 0.3 % (0.0-3.0); Eosinophils Absolute Auto 0.12 K/uL (0.00-0.50); Eosinophils Percent Auto 1.3 % (0.0-7.0); Hemoglobin* 11.2 gm/dL (13.5-17.5); Immature Granulocytes Abs Auto 0.06 K/uL (0.00-0.30); Lymphocytes Percent Auto 12.6 % (20-44); Mean Corpuscular HGB Conc 34 gm/dL (32-36); Mean Corpuscular Hemoglobin 33 pg (26-34); Mean Corpuscular Volume 97 fL (80-100); Monocytes Percent Auto 4.4 % (0.0-11.0); Neutrophils Percent Auto 80.7 % (42.0-72.0); Platelet Count* 296 K/uL (140-440); RDW Coefficient of Variation % 14.3 % (11.5-15.5); Red Blood Count 3.41 m/uL (4.30-5.90); White Blood Count* 9.08 K/uL (4.50-11.00)
[2022-02-26 07:04] LABS: Slide Review Reflex No
[2022-02-26 07:10] LABS: Chloride* 109 mmol/L (96-114); Potassium* 3.9 mmol/L (3.6-5.1); Sodium* 140 mmol/L (135-149)
[2022-02-26 07:13] LABS: Creatinine* 0.7 mg/dL (0.5-1.5); Est. Creatinine Clearance* 104.86; Estimated Glomerular Filt Rate 110 ml/min
[2022-02-26 07:14] LABS: Blood Urea Nitrogen* 16 mg/dL (7-30); Calcium* 8.3 mg/dL (8.4-10.6); Carbon Dioxide* 26 mmol/L (20-32); Glucose* 88 mg/dL (60-115)
[2022-02-26] MEDS: DOCUSATE SODIUM 100 MG CAPSULE PO ×3 (09:00→21:25)
[2022-02-26] MEDS: lamoTRIgine 100 MG TABLET PO ×3 (09:00→21:28)
--- NOTE | 2022-02-26 10:10 | CRLHL7_ITS ---
For Patients: As a result of the Cures Act, medical imaging exams and procedure reports are released immediately into your electronic medical record. You may view this report before your referring provider. If you have questions, please contact your health care provider. INDICATION: CONGESTED, OSTEOMYELITIS Indication: Congestion, osteomyelitis. Technique: Chest one view semi upright portable. Comparison: 02/23/2022. Findings: There is a right upper extremity PICC line. Tip is in the distal SVC. Heart size and pulmonary vasculature are within normal limits. There is no acute airspace disease or pneumothorax. The central airway is normal. The osseous structures are intact. Impression: There is no acute airspace disease. Dictated by Timmy Thompson MD @ 02/26/2022 10:47:53 AM Dictated by: Timmy Thompson MD @ 02/26/2022 10:48:04 (Electronically Signed)
--- NOTE | 2022-02-26 10:29 | PM.GSPN ---
Subjective Subjective Date Seen: 02/26/22 Interval history: Per nursing, patient seems less interactive today, breathing sounds somewhat more gurgly. Exam Narrative: Exam Narrative: Wound: No erythema. No significant exudate. Const: Vital Signs, click to edit/add: Vital Signs - 24 hr 02/25/22 15:00 02/25/22 19:35 02/25/22 23:13 Temperature 98.9 F 99.6 F Pulse Rate [Left B rachial] 92 91 89 Pulse Rate [Pulse Oximeter] 92 91 92 Respiratory Rate 22 20 20 Blood Pressure [Le ft Arm] 117/73 125/76 Pulse Oximetry 92 91 Oxygen Delivery Me thod Room Air Room Air 02/25/22 23:13 02/26/22 07:00 02/26/22 07:00 Temperature 98.4 F Pulse Rate [Left B rachial] 89 Pulse Rate [Pulse Oximeter] 89 80 80 Respiratory Rate 20 20 20 Blood Pressure [Le ft Arm] 121/68 Pulse Oximetry 92 94 Oxygen Delivery Me thod Room Air Room Air Progress Note: A&P Assessment and plan (1) Osteomyelitis: Status: Acute (2) Pressure ulcer: Status: Acute Plan The patient is a 56-year-old male who is status post I&D and bone biopsy of sacral ulcer with osteomyelitis. White blood cell count is normal and CRP is trending down, however there is some concern for decrease in mental status. This is being worked up by the hospital. Bone culture is pending. Continue broad antibiotics for now. Continue b.i.d. wet-to-dry dressing changes with Vashe.
--- NOTE | 2022-02-26 11:42 | PM.IMPN1 ---
Progress Note: A&P Assessment and plan (1) Osteomyelitis: Status: Acute Assessment and Plan: Initially I was concerned regarding his nonverbal status and upper airway/GI secretions. However, his chest x-ray looks good. Lab so far look good. He is on room air. I am awaiting a troponin, procalcitonin, BNP. I suspect this is his baseline. Microbiology reviewed. Negative blood cultures. G stain and culture from the wound swab is reviewed. G stain and culture from the debridement in the OR, reviewed. Final culture still pending. Currently we have Proteus mirabilis identified. Vancomycin, 4 total doses thus far. Will order a vanc trough. Continues on pharmacy directed q.12 dosing. Ceftriaxone 2 g Q 24, day 3 (2) Cerebral palsy: Status: Acute Assessment and Plan: At his baseline. Continue current meds and cares. (3) Epilepsy: Problem details: last documented seizure in 2004 Status: Acute Assessment and Plan: Continue current cares. (4) Developmental non-verbal disorder: Status: Acute Assessment and Plan: Baseline. Subjective Date Seen: 02/26/22 Interval history: Daily Progress Note - Hospital Medicine Day #: 4 POD # 2, Excisional debridement of sacral decubitus ulcer CC: Infected sacral ulcer, exposed bone. Cerebral palsy. Nonverbal. OVERNIGHT UPDATES FROM STAFF & MED, LAB, IMAGING UPDATES I am new to this patient. This is my 1st day rounding. He is nonverbal. Most of the progress in issues are derived from the chart. He can grounds and occasional yes or no. He is able to communicate that he has known pain. Nurse note: The pt has been resting well comfortable throughout the shift. He is incontinent of B & B. Wet to dry Wound dressing, completed last evening- small blood noted on the old dressing; the pt tolerated the procedure . The pt has been non-verbal , he has been taking whole pills with apple sauce with the head of the bed raised 90 degree. This AM the was sweaty, blanket? was taken off, room temp turned down Vitals reviewed, no outliers CBC unremarkable. Chemistries unremarkable. CRP 7.0 down from 12.8. Chest x-ray today unremarkable for acute pulmonary process. I am awaiting procalcitonin, troponin, BNP Micro: Negative blood cultures. gram stain and culture from the wound is reviewed. Proteus mirabilis growing. This is a Gram-negative raymond. G positive cocci are noted in the surgical specimen Gram stain. Aerobic culture is still growing. Anaerobically it has been negative. Review of Systems: Difficult other than patient reports no pain with either an eye blink or a grunt. Objective: Nonverbal. Quadriplegic. Sounds congested with upper respiratory gurgling. Doesn't follow commands Vitals: see above Lungs: no apparent wheezing. Cardiac: S1S2. Disposition/Potential discharge - Likely to return to previous living situation. Total time is 35 minutes with greater than 50% spent in counseling and coordination of care. Exam Const: Vital Signs, click to edit/add: Vital Signs - 24 hr 02/25/22 15:00 02/25/22 19:35 02/25/22 23:13 Temperature 98.9 F 99.6 F Pulse Rate [Left B rachial] 92 91 89 Pulse Rate [Pulse Oximeter] 92 91 92 Respiratory Rate 22 20 20 Blood Pressure [Le ft Arm] 117/73 125/76 Pulse Oximetry 92 91 Oxygen Delivery Me thod Room Air Room Air 02/25/22 23:13 02/26/22 07:00 02/26/22 07:00 Temperature 98.4 F Pulse Rate [Left B rachial] 89 Pulse Rate [Pulse Oximeter] 89 80 80 Respiratory Rate 20 20 20 Blood Pressure [Le ft Arm] 121/68 Pulse Oximetry 92 94 Oxygen Delivery Me thod Room Air Room Air Labs Labs: Laboratory Results - last 24 hr 02/26/22 02/26/22 06:22 06:22 WBC 9.08 RBC 3.41 L Hgb 11.2 L Hct 33.0 L MCV 97 MCH 33 MCHC 34 RDW Coeff of Emmanuel 14.3 Plt Count 296 Neut % (Auto) 80.7 H Lymph % (Auto) 12.6 L [place] % (Auto) 4.4 Eos % (Auto) 1.3 Baso % (Auto) 0.3 Neut # (Auto) 7.30 H Lymph # (Auto) 1.10 [place] # (Auto) 0.40 Eos # (Auto) 0.12 Baso # (Auto) 0.03 Abs Immat Gran (auto) 0.06 Sodium 140 Potassium 3.9 Chloride 109 Carbon Dioxide 26 BUN 16 Creatinine 0.7 Estimated Creat Clear 104.86 Estimated GFR 110 Glucose 88 Calcium 8.3 L C-Reactive Protein 7.0 H
[2022-02-26 12:38] LABS: NT Pro B Type NatriureticPept* 336 PG/mL (0-125)
[2022-02-26 12:45] LABS: Procalcitonin* 0.11 ng/mL (<0.50)
[2022-02-26 12:47] LABS: Troponin I* < 0.01 ng/mL (0.01-0.04)
[2022-02-26 15:00] VITALS: BP 112/68; PULSE 106; PULSE 89; RESP 32; TEMP 37.3; O2SAT 84
[2022-02-26 16:54] VITALS: BP 136/77; PULSE 102; RESP 36; TEMP 36.9; O2SAT 92
[2022-02-26] MEDS: METHYLPREDNISOLONE SOD SUCC 62.5 MG/ML (125) 125 MG IVP (17:08)
[2022-02-26] MEDS: guaiFENesin 600 MG TAB.ER.12H 1200 MG PO ×2 (17:11→21:25)
[2022-02-26] MEDS: ENOXAPARIN 40 MG/0.4 ML INJ SUBCUT (17:11)
[2022-02-26] MEDS: FUROSEMIDE 10 MG/ML inj 40 MG IVP (17:11)
--- NOTE | 2022-02-26 17:32 | CT_ITS ---
Patient: JIMENA COREAS Facility:?[facility] Patient ID:?[id number] Site Patient ID:?[id number]. Site :?[id number] Study:?CT-Chest w/o-02/26/2022 6:22:45 PM Ordering Physician:Filemon Paulino Final Report: INDICATION: Acute hypoxia. Cerebral palsy. Quadriplegia. TECHNIQUE: Volumetric helical scanning of the thorax was performed without IV contrast material. Coronal and sagittal reconstructions were obtained. COMPARISON: None. FINDINGS: Pneumonias are demonstrated in the right lower lobe base and in the inferior right middle lobe. Mucous plugging is noted in the airways serving these regions. Right hilar enlargement is noted, presumably due to adenopathy. The left lung is clear. No pleural effusion is demonstrated. There is no mediastinal or left hilar adenopathy. A right-sided PICC line is noted with tip in the region of the cavoatrial junction. The heart size is normal. Images of the upper abdomen are unremarkable. IMPRESSION: 1. Right lower lobe base and an inferior right middle lobe pneumonia along with mucous plugging in the bronchi serving these regions. 2. Mild right hilar enlargement presumably due to lymphadenopathy. Please note that all CT scans at this facility use dose modulation, iterative reconstruction, and/or weight-based dosing when appropriate to reduce radiation dose to as low as reasonably achievable. Dictated by Eric Harkins MD @ 02/26/2022 6:51:01 PM Signed by:?Eric Harkins MD @02/26/2022 6:51:01 PM (Electronic Signature)
[2022-02-26 17:46] LABS: ABG PCO2 33 mmHG (35-45); Base Excess ABG 1.7 mmol/L (-3.0-3.0); HCO3 ABG 25 mmol/L (21-28); Oxygen Saturation ABG 96 % (92-100); TCO2 ABG 22 mmol/l (21-30); pH ABG 7.48 (7.35-7.45)
[2022-02-26 19:00] VITALS: BP 137/80; PULSE 84; RESP 26; TEMP 36.8; O2SAT 95
--- NOTE | 2022-02-26 19:09 | PM.EN ---
Chart Event Note Time Seen by Provider: 19:10 Date Seen: 02/26/22 Chart Event Note: Once again, the patient's respiratory status suddenly changed earlier today. I have assessed him a couple of times this afternoon and evening. His condition seems to have stabilized on his current regimen. CT scan of the chest without contrast demonstrates new infiltrates in the right lower lobe base and in the inferior right middle lobe consistent with pneumonia. Additionally there is mucus plugging in the bronchi serving these regions. Radiologist concludes the followin. Right lower lobe base and an inferior right middle lobe pneumonia along with mucous plugging in the bronchi serving these regions. 2. Mild right hilar enlargement presumably due to lymphadenopathy. Impression: 1. New pulmonary infiltrates in the right lower lobe base and inferior right middle lobe consistent with pneumonia. Most likely this is from aspiration and does qualify as a healthcare acquired pneumonia. 2. Acute hypoxemic respiratory failure in association with the new pulmonary infiltrates. Plan recommendations: 1. Stop the ceftriaxone IV. 2. Start piperacillin with tazobactam 3.375 g IV q.6 hours. 3. Continue with vancomycin IV antibiotic as presently instituted. 4. Continue with oxygen supportive efforts and pulmonary hygiene efforts as discussed with respiratory therapy. 5. Will assess patient's swallowing abilities. Consider modification of diet texture in liquids. 6. Will check a nasal MRSA swab if it has not already been done during this hospitalization. 7. Will inform patient's family members.
[2022-02-26] MEDS: PIPERACILLIN/TAZOBACTAM 3.375 GM in 0.9 % SODIUM CHLORIDE Mini-bag 100 ML IVPB (19:45)
--- NOTE | 2022-02-26 19:47 | PC.NURSE ---
patient changed to CCU around 1700 d/t desaturations with RR 30's and pt diaphoretic. Pt placed on high flow d/t mucous plug. CT scan done. PNX present with mucous plug. Pt currently at 100% FIO2 and will be tapered as tolerated.
[2022-02-26] MEDS: polyethylene glycoL 3350 17 GM PACK PO (21:25)
[2022-02-26] MEDS: MIRTAZAPINE 15 MG TABLET PO (21:25)
[2022-02-26 23:00] VITALS: BP 127/79; PULSE 78; PULSE 84; RESP 22; RESP 24; TEMP 36.7; O2SAT 95
[2022-02-27] VITALS (7 sets, daily range): BP systolic 104–128; BP diastolic 60–67; PULSE 68–97; RESP 22–24; TEMP 36.1–37.2; O2SAT 93–97
[2022-02-27] MEDS: PIPERACILLIN/TAZOBACTAM 3.375 GM in 0.9 % SODIUM CHLORIDE Mini-bag 100 ML IVPB ×4 (01:30→19:33)
--- NOTE | 2022-02-27 05:20 | PC.NURSE ---
Shift 7p-7a: Pt. opens eyes and intermittently tracking but not following commands/non-verbal. VSS on aerosol mask at 10L and FiO2 40%, satting 92-96%. Pt.'s LS coarse throughout bases, pt. has occasional moist, non-productive cough. Pt.'s sacral ulcer dressing changed previous shift, C/D/I. Dressing changes BID and PRN. Pt. repositioned q2h, incontinent of bowel/bladder with x3 wet diapers during shift. Pt. swallowing nectar thick liquids and whole pills with MD cyn placed swallow evaluation today for aspiration. Pt. started on IV pipercillin abx last night in conjunction with vancomycin. Plan for continued abx treatment and promoting skin integrity
[2022-02-27 07:00] LABS: HCO3 VBG 26 mmol/L (21-28); PCO2 VBG 41 mmHG (40-50); PO2 VBG 49.2 mmHG (25-47)
[2022-02-27 07:14] LABS: Hematocrit 35.1 % (37.0-53.0); Immature Granulocytes Abs Auto 0.08 K/uL (0.00-0.30); Lymphocytes Percent Auto 6.7 % (20-44); Mean Corpuscular HGB Conc 34 gm/dL (32-36); Mean Corpuscular Hemoglobin 33 pg (26-34); Mean Corpuscular Volume 96 fL (80-100); Monocytes Percent Auto 0.9 % (0.0-11.0); Neutrophils Percent Auto 91.7 % (42.0-72.0); Platelet Count* 319 K/uL (140-440); RDW Coefficient of Variation % 14.1 % (11.5-15.5); Red Blood Count 3.64 m/uL (4.30-5.90); White Blood Count* 11.59 K/uL (4.50-11.00)
--- NOTE | 2022-02-27 07:15 | P.IMPN_ITS ---
Progress Note: A&P Assessment and plan (1) Acute respiratory failure, unspecified whether with hypoxia or hypercapnia: Status: Acute Assessment and Plan: Stable gas. RT has been very helpful. Will continue working on his mucus plugging and likely need to thicken his liquids. Continue Zosyn. Stopped the vancomycin. Continue ceftriaxone for the Proteus. (2) Osteomyelitis: Status: Acute Assessment and Plan: Will need long-term antibiotics secondary to the Proteus osteomyelitis and aspiration pneumonia. PICC line in place. (3) Pneumonia: Status: Acute Assessment and Plan: Right middle and lower lobe. He needs swallow study. (4) Cerebral palsy: Status: Acute Assessment and Plan: Stable (5) Epilepsy: Problem details: last documented seizure in 2004 Status: Acute (6) Developmental non-verbal disorder: Status: Acute Subjective Date Seen: 02/27/22 Interval history: Daily Progress Note - Hospital Medicine Day #: 5 POD # 3, Excisional debridement of sacral decubitus ulcer CC: Infected sacral ulcer, exposed bone. Cerebral palsy. Nonverbal. New respiratory distress (02/26) transferred to ICU and dx with pneumonia. OVERNIGHT UPDATES FROM STAFF & MED, LAB, IMAGING UPDATES Overnight the patient was stable. However yesterday afternoon the patient had desaturated into the low 80s likely after aspiration event. CT as below shows right lower and middle lobe pneumonias. Mucus plugging. He was started on Zosyn. He has been on 10 L with humidification and maintain sats in the low 90s. IMPRESSION: 1. Right lower lobe base and an inferior right middle lobe pneumonia along with mucous plugging in the bronchi serving these regions. 2. Mild right hilar enlargement presumably due to lymphadenopathy. Surgical debridement ulcer came back with the same Gram-negative raymond, Proteus as his wound culture did. I stopped the vancomycin. Zosyn and ceftriaxone should suffice. Review of Systems: Difficult other than patient reports no pain with either an eye blink or a grunt. Objective: Nonverbal. Quadriplegic. Looks somewhat improved from yesterday. A little more alert. Tracking people walking in front of him. Vitals: see above Lungs: no apparent wheezing. Fine crackles noted on the right side. I think there is less accessory muscle use and tachypnea and I noted yesterday. Cardiac: S1S2. Disposition/Potential discharge - Likely will need escalated care via custodial facility. Total time is 35 minutes with greater than 50% spent in counseling and coordination of care. Exam Const: Vital Signs, click to edit/add: Vital Signs - 24 hr 02/26/22 15:00 02/26/22 15:00 02/26/22 15:59 Temperature 99.2 F Pulse Rate [Left B rachial] 89 Pulse Rate [Pulse Oximeter] 106 H 106 H Respiratory Rate 32 H 32 H Blood Pressure [Le ft Arm] 112/68 Pulse Oximetry 84 L Oxygen Delivery Me thod Room Air Oxygen Flow Rate Fraction of Inspir ed Oxygen 80 02/26/22 18:11 02/26/22 16:54 02/26/22 19:00 Temperature 98.5 F Pulse Rate [Left B rachial] 84 Pulse Rate [Pulse Oximeter] 102 H 84 Respiratory Rate 36 H 26 H Blood Pressure [Le ft Arm] 136/77 Pulse Oximetry 92 Oxygen Delivery Me thod Aerosol Mask Aerosol Mask Oxygen Flow Rate 10 Fraction of Inspir ed Oxygen 80 80 02/26/22 19:00 02/26/22 19:00 02/26/22 21:00 Temperature 98.3 F Pulse Rate [Left B rachial] 84 Pulse Rate [Pulse Oximeter] 84 Respiratory Rate 26 H Blood Pressure [Le ft Arm] 137/80 Pulse Oximetry 95 Oxygen Delivery Me thod Aerosol Mask Oxygen Flow Rate 10 Fraction of Inspir ed Oxygen 80 80 80 02/26/22 23:00 02/26/22 23:00 02/26/22 23:00 Temperature 98.1 F Pulse Rate [Left B rachial] 78 84 Pulse Rate [Pulse Oximeter] 78 84 Respiratory Rate 24 22 Blood Pressure [Le ft Arm] 127/79 Pulse Oximetry 95 Oxygen Delivery Me thod Aerosol Mask Oxygen Flow Rate 10 Fraction of Inspir ed Oxygen 60 50 02/27/22 00:51 02/27/22 03:00 02/27/22 03:00 Temperature Pulse Rate [Left B rachial] 68 Pulse Rate [Pulse Oximeter] 68 Respiratory Rate 24 Blood Pressure [Le ft Arm] Pulse Oximetry Oxygen Delivery Me thod Oxygen Flow Rate Fraction of Inspir ed Oxygen 40 40 02/27/22 03:00 02/27/22 05:00 Temperature 98.2 F Pulse Rate [Left B rachial] 68 Pulse Rate [Pulse Oximeter] 68 Respiratory Rate 24 Blood Pressure [Le ft Arm] 119/65 Pulse Oximetry 95 Oxygen Delivery Me thod Aerosol Mask Oxygen Flow Rate 10 Fraction of Inspir ed Oxygen 40 40 Labs Labs: Laboratory Results - last 24 hr 02/26/22 02/26/22 02/26/22 06:22 06:22 17:45 ABG pH 7.48 H ABG pCO2 33 L ABG pO2 73.0 L ABG HCO3 25 ABG Total CO2 22 ABG O2 Saturation 96 ABG Base Excess 1.7 VBG pH VBG pCO2 VBG pO2 VBG HCO3 Sodium 140 Potassium 3.9 Chloride 109 Carbon Dioxide 26 BUN 16 Creatinine 0.7 Estimated Creat Clear 104.86 Estimated GFR 110 Glucose 88 Calcium 8.3 L Troponin I < 0.01 L C-Reactive Protein 7.0 H NT-Pro-B Natriuret Pep 336 H Procalcitonin 0.11 Vancomycin Trough 02/26/22 02/27/22 21:11 06:45 ABG pH ABG pCO2 ABG pO2 ABG HCO3 ABG Total CO2 ABG O2 Saturation ABG Base Excess VBG pH 7.420 VBG pCO2 41 VBG pO2 49.2 H VBG HCO3 26 Sodium Potassium Chloride Carbon Dioxide BUN Creatinine Estimated Creat Clear Estimated GFR Glucose Calcium Troponin I C-Reactive Protein NT-Pro-B Natriuret Pep Procalcitonin Vancomycin Trough 53.5 H
[2022-02-27 07:21] LABS: Chloride* 106 mmol/L (96-114); Slide Review Reflex No
[2022-02-27 07:22] LABS: Potassium* 3.8 mmol/L (3.6-5.1); Sodium* 140 mmol/L (135-149)
[2022-02-27 07:24] LABS: Creatinine* 0.8 mg/dL (0.5-1.5); Est. Creatinine Clearance* 91.75; Estimated Glomerular Filt Rate 105 ml/min
[2022-02-27 07:25] LABS: Blood Urea Nitrogen* 22 mg/dL (7-30); Calcium* 8.6 mg/dL (8.4-10.6); Carbon Dioxide* 26 mmol/L (20-32); Glucose* 117 mg/dL (60-115)
[2022-02-27 07:28] LABS: C Reactive Protein* 8.9 mg/dL (0.5-1.0)
[2022-02-27] MEDS: METHYLPREDNISOLONE SOD SUCC 62.5 MG/ML (125) 125 MG IVP ×3 (08:13→19:33)
[2022-02-27 09:10] LABS: PCR FLU A Negative PCR FLU A (Negative); PCR FLU B Negative PCR FLU B (Negative); PCR RSV Negative PCR RSV (Negative)
[2022-02-27 09:16] LABS: SARS PCR* Negative SARS-CoV-2 (Negative)
[2022-02-27] MEDS: lamoTRIgine 100 MG TABLET PO ×3 (09:55→20:45)
[2022-02-27] MEDS: DOCUSATE SODIUM 100 MG CAPSULE PO ×3 (09:55→20:45)
[2022-02-27] MEDS: guaiFENesin 600 MG TAB.ER.12H 1200 MG PO ×2 (09:55→20:45)
--- NOTE | 2022-02-27 10:59 | RESP.RT ---
Patient has been on C-mist over night and has had secretion issues. Oral suctioning is productive as it stimulates his ability to cough and clear pooling secretions. We have been able to wean his FiO2 from 80% down to 40% while keeping his SATs in the mid 90's. ABG was done last night and confirmed that his CO2 and pH levels showed hyperventilation.
--- NOTE | 2022-02-27 16:02 | PC.NURSE ---
Patient cooperative with cares. Ax1-2 with bed mobility. Turn and repo Q2. Total feeding assist with thickened liquids and soft foods and up at 90 degrees while eating. LS course. Pt suctioned x4 thus far today - pt sats drop to around 88% and with suction, improve up to 97% on 10L mask with 80% FIO2. Pt currently satting 93%. Afebrile. Continue zosyn and vanco. Dressing changed to coccyx - pt tolerated well. bleeding noted to wound bed upon removal of gauze, repacked with vashe soaked kerlix and covered with Mepilex. wrist braces off x 30 minutes this AM to promote optimal skin integrity. Solumedrol q6. Mom and joselo in room at bedside and very supportive, verbalized he looks good today.
[2022-02-27] MEDS: ENOXAPARIN 40 MG/0.4 ML INJ SUBCUT (17:10)
[2022-02-27] MEDS: polyethylene glycoL 3350 17 GM PACK PO (20:45)
[2022-02-27] MEDS: MIRTAZAPINE 15 MG TABLET PO (20:45)
[2022-02-28] VITALS (8 sets, daily range): BP systolic 120–136; BP diastolic 62–71; PULSE 60–87; RESP 18–24; TEMP 36.9–37.3; O2SAT 90–97
[2022-02-28] MEDS: METHYLPREDNISOLONE SOD SUCC 62.5 MG/ML (125) 125 MG IVP ×4 (01:31→19:30)
[2022-02-28] MEDS: PIPERACILLIN/TAZOBACTAM 3.375 GM in 0.9 % SODIUM CHLORIDE Mini-bag 100 ML IVPB ×4 (01:31→19:25)
--- NOTE | 2022-02-28 06:37 | PC.NURSE ---
Shift 7p-7a: Pt. opens eyes and intermittently tracking but not following commands/non-verbal. VSS on aerosol mask at 5L and FiO2 28%, satting 94-96%. Pt.'s LS coarse throughout bases, pt. has occasional moist, productive cough, orally suctioned PRN. Pt.'s sacral ulcer dressing changed yesterday at 2100, C/D/I. Dressing changes BID and PRN. Pt. repositioned q2h, incontinent of bowel/bladder with x2 wet diapers and 1 BM during shift. Pt. swallowing nectar thick liquids and whole pills with applesauce, Swallow evaluation placed for aspiration. Plan for continued abx treatment, weaning O2 requirements, and promoting skin integrity
[2022-02-28 06:58] LABS: HCO3 VBG 28 mmol/L (21-28); Ionized Calcium* 1.11 mmol/L (1.11-1.30); Lactate* 2.5 mmol/L (0.5-1.9); PCO2 VBG 40 mmHG (40-50); PO2 VBG 49.4 mmHG (25-47); pH VBG 7.458 (7.32-7.43)
[2022-02-28 06:59] LABS: Hematocrit 35.2 % (37.0-53.0); Hemoglobin* 11.5 gm/dL (13.5-17.5); Immature Granulocytes Abs Auto 0.07 K/uL (0.00-0.30); Lymphocytes Percent Auto 5.9 % (20-44); Mean Corpuscular HGB Conc 33 gm/dL (32-36); Mean Corpuscular Hemoglobin 31 pg (26-34); Mean Corpuscular Volume 95 fL (80-100); Monocytes Percent Auto 2.8 % (0.0-11.0); Neutrophils Percent Auto 90.7 % (42.0-72.0); Platelet Count* 376 K/uL (140-440); RDW Coefficient of Variation % 14.3 % (11.5-15.5); White Blood Count* 11.48 K/uL (4.50-11.00)
[2022-02-28 07:03] LABS: Slide Review Reflex No
--- NOTE | 2022-02-28 07:18 | PM.IMPN1 ---
Progress Note: A&P Assessment and plan (1) Aspiration pneumonia: Status: Acute Assessment and Plan: needs swallow study. thickened nectar type foods going forward. continue Zosyn via PICC (2) Acute respiratory failure, unspecified whether with hypoxia or hypercapnia: Status: Acute Assessment and Plan: resolved; on room air. (3) Lactate blood increased: Status: Acute Assessment and Plan: likely from poor PO intake and aspiration this weekend. NS bolus in PICCthis morning. (4) Osteomyelitis: Status: Acute Assessment and Plan: gen surg taking lead; will get wound vac ordered/placed. (5) Cerebral palsy: Status: Acute Assessment and Plan: stable (6) Epilepsy: Problem details: last documented seizure in 2004 Status: Acute Assessment and Plan: stable. (7) Developmental non-verbal disorder: Status: Acute Assessment and Plan: stable. Plan swallow study tomorrow. can move to SNF tomorrow. Subjective Date Seen: 02/28/22 Interval history: Daily Progress Note - Hospital Medicine Day #: 6 POD # 4, Excisional debridement of sacral decubitus ulcer CC: Infected sacral ulcer, exposed bone. Cerebral palsy. Nonverbal. resolved respiratory distress (02/26) transferred to ICU and dx with pneumonia. Team note: 7p-7a: Pt. opens eyes and intermittently tracking but not following commands/non-verbal. VSS on aerosol mask at 5L and FiO2 28%, satting 94-96%. Pt.'s LS coarse throughout bases, pt. has occasional moist, productive cough, orally suctioned PRN. Pt.'s sacral ulcer dressing changed yesterday at 2100, C/D/I. Dressing changes BID and PRN. Pt. repositioned q2h, incontinent of bowel/bladder with x2 wet diapers and 1 BM during shift. Pt. swallowing nectar thick liquids and whole pills with applesauce, Swallow evaluation placed for aspiration. Plan for continued abx treatment, weaning O2 requirements, and promoting skin integrity 124/63, pulse 83, respiratory rate 18. Afebrile. 94% on ROOM AIR CBC this morning reflects a stable and mildly leukocytosis Stable hemoglobin Reassuring unremarkable blood gas Potassium has drifted a little to 3.5 Lactate has bumped a little likely secondary to poor intake and respiratory distress over the weekend CRP is down trending which is reassuring 02/26 IMPRESSION: 1. Right lower lobe base and an inferior right middle lobe pneumonia along with mucous plugging in the bronchi serving these regions. 2. Mild right hilar enlargement presumably due to lymphadenopathy. Surgical debridement ulcer came back with the same Gram-negative raymond, Proteus as his wound culture did. I stopped the vancomycin. Zosyn will cover both the Proteus and aspiration pneumonia. He has a PICC line and we can continue IV abx for the osteo that will also cover the short term need for the respiratory tract. Review of Systems: Difficult other than patient reports no pain with either an eye blink or a grunt. Objective: Nonverbal. Quadriplegic. Continues to improve. He tried smiling today. A little more alert. Tracking people walking in front of him. Vitals: see above Lungs: no apparent wheezing. Fine crackles noted on the right side - upper respiratory congestion. less accessory muscle use. less tachypnea. Cardiac: S1S2. sacral wound: not examined - gen surg came in right after my visit and observed wound and ordered wound vac. Disposition/Potential discharge - Likely will need escalated care via correction facility. Total time is 35 minutes with greater than 50% spent in counseling and coordination of care. Exam Const: Vital Signs, click to edit/add: Vital Signs - 24 hr 02/27/22 09:00 02/27/22 11:02 02/27/22 11:24 Temperature 98.6 F Pulse Rate [Left B rachial] 87 Pulse Rate [Pulse Oximeter] 76 Respiratory Rate 24 Blood Pressure [Le ft Arm] 112/60 Pulse Oximetry 93 Oxygen Delivery Me thod Aerosol Mask Oxygen Flow Rate 10 Fraction of Inspir ed Oxygen 40 40 40 02/27/22 11:00 02/27/22 13:00 02/27/22 15:00 Temperature Pulse Rate [Left B rachial] 87 87 Pulse Rate [Pulse Oximeter] 76 89 Respiratory Rate 22 24 Blood Pressure [Le ft Arm] Pulse Oximetry Oxygen Delivery Me thod Oxygen Flow Rate Fraction of Inspir ed Oxygen 80 02/27/22 15:00 02/27/22 15:00 02/27/22 17:00 Temperature 98.2 F Pulse Rate [Left B rachial] Pulse Rate [Pulse Oximeter] 89 Respiratory Rate 24 Blood Pressure [Le ft Arm] 118/67 Pulse Oximetry 94 Oxygen Delivery Me thod Aerosol Mask Oxygen Flow Rate 10 Fraction of Inspir ed Oxygen 80 80 80 02/27/22 19:00 02/27/22 19:00 02/27/22 19:00 Temperature 99 F Pulse Rate [Left B rachial] Pulse Rate [Pulse Oximeter] 79 79 Respiratory Rate 24 24 Blood Pressure [Le ft Arm] 128/63 Pulse Oximetry 96 Oxygen Delivery Me thod Aerosol Mask Oxygen Flow Rate 10 Fraction of Inspir ed Oxygen 40 40 02/27/22 21:00 02/27/22 22:55 02/27/22 22:55 Temperature Pulse Rate [Left B rachial] Pulse Rate [Pulse Oximeter] 76 Respiratory Rate 24 Blood Pressure [Le ft Arm] Pulse Oximetry Oxygen Delivery Me thod Oxygen Flow Rate Fraction of Inspir ed Oxygen 40 35 02/27/22 22:55 02/28/22 00:44 02/28/22 02:24 Temperature 98.6 F Pulse Rate [Left B rachial] Pulse Rate [Pulse Oximeter] 76 84 Respiratory Rate 24 24 Blood Pressure [Le ft Arm] 126/62 Pulse Oximetry 95 Oxygen Delivery Me thod Aerosol Mask Oxygen Flow Rate 8 Fraction of Inspir ed Oxygen 35 35 02/28/22 02:24 02/28/22 03:00 02/28/22 04:50 Temperature 98.8 F Pulse Rate [Left B rachial] Pulse Rate [Pulse Oximeter] 84 Respiratory Rate 24 Blood Pressure [Le ft Arm] 120/62 Pulse Oximetry 96 Oxygen Delivery Me thod Aerosol Mask Oxygen Flow Rate 5 Fraction of Inspir ed Oxygen 28 28 28 Labs Labs: Laboratory Results - last 24 hr 02/27/22 02/27/22 02/27/22 06:45 06:45 07:20 WBC 11.59 H RBC 3.64 L Hgb 12.0 L Hct 35.1 L MCV 96 MCH 33 MCHC 34 RDW Coeff of Emmanuel 14.1 Plt Count 319 Neut % (Auto) 91.7 H Lymph % (Auto) 6.7 L [place] % (Auto) 0.9 Eos % (Auto) 0.0 Baso % (Auto) 0.0 Neut # (Auto) 10.60 H Lymph # (Auto) 0.80 L [place] # (Auto) 0.10 Eos # (Auto) 0.00 Baso # (Auto) 0.00 Abs Immat Gran (auto) 0.08 VBG pH VBG pCO2 VBG pO2 VBG HCO3 Sodium 140 Potassium 3.8 Chloride 106 Carbon Dioxide 26 BUN 22 Creatinine 0.8 Estimated Creat Clear 91.75 Estimated GFR 105 Glucose 117 H Lactate Calcium 8.6 Ionized Calcium Lorri C-Reactive Protein 8.9 H SARS-CoV-2 (PCR) Negative SARS-CoV-2 Influenza Type A (PCR) Negative PCR FLU A Influenza Type B (PCR) Negative PCR FLU B RSV (PCR) Negative PCR RSV 02/28/22 02/28/22 06:50 06:50 WBC 11.48 H RBC 3.70 L Hgb 11.5 L Hct 35.2 L MCV 95 MCH 31 MCHC 33 RDW Coeff of Emmanuel 14.3 Plt Count 376 Neut % (Auto) 90.7 H Lymph % (Auto) 5.9 L [place] % (Auto) 2.8 Eos % (Auto) 0.0 Baso % (Auto) 0.0 Neut # (Auto) 10.40 H Lymph # (Auto) 0.70 L [place] # (Auto) 0.30 Eos # (Auto) 0.00 Baso # (Auto) 0.00 Abs Immat Gran (auto) 0.07 VBG pH 7.458 H VBG pCO2 40 VBG pO2 49.4 H VBG HCO3 28 Sodium Potassium Chloride Carbon Dioxide BUN Creatinine Estimated Creat Clear Estimated GFR Glucose Lactate 2.5 H Calcium Ionized Calcium Lorri 1.11 C-Reactive Protein SARS-CoV-2 (PCR) Influenza Type A (PCR) Influenza Type B (PCR) RSV (PCR)
[2022-02-28 07:22] LABS: Albumin* 3.2 g/dL (3.3-5.0); Chloride* 110 mmol/L (96-114)
[2022-02-28 07:23] LABS: Potassium* 3.5 mmol/L (3.6-5.1); Sodium* 144 mmol/L (135-149)
[2022-02-28 07:25] LABS: Alanine Aminotransferase* 38 U/L (4-50); Alkaline Phosphatase* 90 U/L (40-150); Aspartate Amino Transferase* 37 U/L (12-35); Bilirubin Total* 0.2 mg/dL (0.1-1.5); Blood Urea Nitrogen* 30 mg/dL (7-30); Carbon Dioxide* 32 mmol/L (20-32); Creatinine* 0.8 mg/dL (0.5-1.5); Est. Creatinine Clearance* 91.75; Estimated Glomerular Filt Rate 105 ml/min; Total Protein* 6.9 g/dL (6.0-8.3)
[2022-02-28 07:26] LABS: Calcium* 8.2 mg/dL (8.4-10.6); Glucose* 230 mg/dL (60-115); INR 1.08 (0.91-1.10); Magnesium* 2.6 mg/dL (1.5-2.6); Prothrombin Time 14.4 Seconds
[2022-02-28 07:28] LABS: C Reactive Protein* 5.5 mg/dL (0.5-1.0)
[2022-02-28 07:35] LABS: NT Pro B Type NatriureticPept* 348 PG/mL (0-125)
[2022-02-28 07:42] LABS: Procalcitonin* 0.09 ng/mL (<0.50)
[2022-02-28] MEDS: DOCUSATE SODIUM 100 MG CAPSULE PO ×3 (08:43→20:30)
[2022-02-28] MEDS: guaiFENesin 600 MG TAB.ER.12H 1200 MG PO ×2 (08:43→20:30)
[2022-02-28] MEDS: lamoTRIgine 100 MG TABLET PO ×3 (08:44→20:30)
--- NOTE | 2022-02-28 11:06 | PM.GSPN ---
Subjective Subjective Date Seen: 02/28/22 Interval history: Patient is nonverbal. He is awake and following with eyes, appears alert. Exam Narrative: Exam Narrative: General: Lying in bed in no acute distress Genitourinary: Coccyx dressing taken down. Wound bed with healthy granulation tissue, small amount of fibrinous exudate. No areas of necrosis or foul odor noted. No concerning surrounding cellulitis. Const: Vital Signs, click to edit/add: Vital Signs - 24 hr 02/27/22 11:24 02/27/22 13:00 02/27/22 15:00 Temperature 98.6 F Pulse Rate [Left B rachial] 87 87 Pulse Rate [Left R adial] Pulse Rate [Pulse Oximeter] 76 89 Respiratory Rate 24 24 Blood Pressure [Le ft Arm] 112/60 Pulse Oximetry 93 Oxygen Delivery Me thod Aerosol Mask Oxygen Flow Rate 10 Fraction of Inspir ed Oxygen 40 80 02/27/22 15:00 02/27/22 15:00 02/27/22 17:00 Temperature 98.2 F Pulse Rate [Left B rachial] Pulse Rate [Left R adial] Pulse Rate [Pulse Oximeter] 89 Respiratory Rate 24 Blood Pressure [Le ft Arm] 118/67 Pulse Oximetry 94 Oxygen Delivery Me thod Aerosol Mask Oxygen Flow Rate 10 Fraction of Inspir ed Oxygen 80 80 80 02/27/22 19:00 02/27/22 19:00 02/27/22 19:00 Temperature 99 F Pulse Rate [Left B rachial] Pulse Rate [Left R adial] Pulse Rate [Pulse Oximeter] 79 79 Respiratory Rate 24 24 Blood Pressure [Le ft Arm] 128/63 Pulse Oximetry 96 Oxygen Delivery Me thod Aerosol Mask Oxygen Flow Rate 10 Fraction of Inspir ed Oxygen 40 40 02/27/22 21:00 02/27/22 22:55 02/27/22 22:55 Temperature Pulse Rate [Left B rachial] Pulse Rate [Left R adial] Pulse Rate [Pulse Oximeter] 76 Respiratory Rate 24 Blood Pressure [Le ft Arm] Pulse Oximetry Oxygen Delivery Me thod Oxygen Flow Rate Fraction of Inspir ed Oxygen 40 35 02/27/22 22:55 02/28/22 00:44 02/28/22 02:24 Temperature 98.6 F Pulse Rate [Left B rachial] Pulse Rate [Left R adial] Pulse Rate [Pulse Oximeter] 76 84 Respiratory Rate 24 24 Blood Pressure [Le ft Arm] 126/62 Pulse Oximetry 95 Oxygen Delivery Me thod Aerosol Mask Oxygen Flow Rate 8 Fraction of Inspir ed Oxygen 35 35 02/28/22 02:24 02/28/22 03:00 02/28/22 04:50 Temperature 98.8 F Pulse Rate [Left B rachial] Pulse Rate [Left R adial] Pulse Rate [Pulse Oximeter] 84 Respiratory Rate 24 Blood Pressure [Le ft Arm] 120/62 Pulse Oximetry 96 Oxygen Delivery Me thod Aerosol Mask Oxygen Flow Rate 5 Fraction of Inspir ed Oxygen 28 28 28 02/28/22 07:45 02/28/22 07:45 02/28/22 11:00 Temperature 98.7 F 98.5 F Pulse Rate [Left B rachial] Pulse Rate [Left R adial] 87 87 83 Pulse Rate [Pulse Oximeter] 87 87 83 Respiratory Rate 20 20 18 Blood Pressure [Le ft Arm] 120/67 124/63 Pulse Oximetry 97 94 Oxygen Delivery Me thod Aerosol Mask Room Air Oxygen Flow Rate 5 Fraction of Inspir ed Oxygen Labs/Imaging Labs Labs: Reviewed, leukocytosis stable. Patient also has recently diagnosed aspiration pneumonia Imaging Imaging: No new wound imaging. No new imaging this morning. Progress Note: A&P Assessment and plan (1) Pressure ulcer: Status: Acute Plan The patient is a 56-year-old male who is status post I&D and bone biopsy of sacral ulcer with osteomyelitis. White blood cell count is stable with patient recently being diagnosed with aspiration pneumonia. He is being followed by the hospitalist. Cultures have shown growth of Proteus and E coli. Antibiotics have been narrowed to Zosyn and ceftriaxone. Dressings were taken down at bedside, no further debridement of wound bed needed at this time with healthy granulation tissue. Patient would benefit from a wound VAC, this process is already been started through the wound center and will see if one can be acquired/applied. From a surgical perspective patient is ready to discharge to a facility. All other cares per hospitalist, appreciate their assistance.
[2022-02-28] MEDS: 0.9 % SODIUM CHLORIDE 500 ML 500 ML IV (11:44)
--- NOTE | 2022-02-28 15:39 | PC.SOCIAL ---
Discharge planning: Faxed information to [facility] for evaluation for admit. Pt typically lives at a residential which is unable to accept him back due to his need for IV abx. Awaiting call back from [facility] with decision on admit. Called pt's [facility] worker, Norma Sanchez [phone], who states she will complete the Level 2 Screening required for the PAS when a facility is confirmed. Norma requested social services designee call her with this information when determined. liner worker to follow up as needed.
--- NOTE | 2022-02-28 16:13 | PC.NURSE ---
End of shift. pt has been pleasant and he is non verbal. Pt. opens eyes and will track staff talking to him. he was on a aerosol mask at 5L and FiO2 28%, sAo2. 94-96%. he has been on RA all day till 1330 and then Sao2 dropped. put o2 back on and pt was suction and was able to cough up a mucus plug. Pt.'s LS exp coarse throughout. pt. has a occasional non- productive cough. he was turned and repositioned q2-3 hours./ he was wet 2 times. Pt.'s sacral ulcer dressing changed after Dr. Ramos looked at it. dressing is C/D/I. is going to put a wound vac on pt tomorrow. Pt is on nectar thick liquids and whole pills with applesauce,he is a total feeder and we think he might of had some aspiration with lunch @ 1300 as o2 sao2 dropped shortly after. he has a swallow eval tomorrow @ 1130 picc is SL except for IV antibiotics and 500 mls fluids bolus x1. scds are on. call light is with in reach frequent checks he likes cartoons on
[2022-02-28] MEDS: ENOXAPARIN 40 MG/0.4 ML INJ SUBCUT (17:06)
--- NOTE | 2022-02-28 18:15 | PC.NURSE ---
Shift Summary 15-19: Patient passive with cares, turned and repositioned q2h with two assist. Incontinent of bladder x1. O2 sats dropped at start of shift, pummeling done on back followed by suction, o2 sats returned to >90% on RA. Tolerating thickened liquids and pureed food. Oral care performed at start of shift.
[2022-02-28] MEDS: MIRTAZAPINE 15 MG TABLET PO (20:30)
[2022-02-28] MEDS: polyethylene glycoL 3350 17 GM PACK PO (20:30)
[2022-03-01] MEDS: PIPERACILLIN/TAZOBACTAM 3.375 GM in 0.9 % SODIUM CHLORIDE Mini-bag 100 ML IVPB ×2 (01:32→07:24)
[2022-03-01] MEDS: METHYLPREDNISOLONE SOD SUCC 62.5 MG/ML (125) 125 MG IVP ×4 (01:33→20:31)
[2022-03-01 02:47] VITALS: BP 128/71; PULSE 75; RESP 20; TEMP 37.1; O2SAT 94
--- NOTE | 2022-03-01 06:31 | PC.NURSE ---
Shift 7p-7a: Pt. opens eyes and intermittently tracking but not following commands/non-verbal. VSS on RA, satting 94-96%. Pt.'s LS coarse throughout bases, pt. has occasional moist, productive cough, orally suctioned PRN. Pt. turned and pummeled gently on back q4h to promote loosening of mucus/secretions. Pt.'s sacral ulcer dressing changed at 0600 today, C/D/I. Dressing changes BID and PRN. Pt. repositioned q2h, incontinent of bowel/bladder with x2 wet diapers and 1 BM during shift. Pt. swallowing nectar thick liquids and whole pills with applesauce, swallow evaluation placed for aspiration. Plan for continued abx treatment, promoting skin integrity, possible wound vac consultation/placement pending, and transfer to SNF when accepted
--- NOTE | 2022-03-01 07:00 | CRLHL7_ITS ---
For Patients: As a result of the Century Cures Act, medical imaging exams and procedure reports are released immediately into your electronic medical record. You may view this report before your referring provider. If you have questions, please contact your health care provider. INDICATION: Follow up aspiration pneumonia COMPARISON: A plain film dated 02/26/2022 TECHNIQUE: Single-view study March 01, 2022 at 7:49 a.m. FINDINGS: TUBES AND LINES: PICC line ending in the distal SVC. HEART AND MEDIASTINUM: The heart size is normal. The mediastinal contour appears normal for patient age. LUNGS AND PLEURAL SPACES: The lungs appear normal.The pleural spaces are unremarkable. OSSEOUS STRUCTURES: Age-appropriate appearance. No acute focal finding. IMPRESSION: No evidence of active pulmonary disease. Dictated by Cale Romero MD @ 03/01/2022 7:49:54 AM (Electronically Signed)
[2022-03-01 07:29] LABS: Lactate* 1.2 mmol/L (0.5-1.9)
[2022-03-01 07:30] VITALS: BP 129/69; PULSE 65; RESP 18; TEMP 36.5; O2SAT 95
[2022-03-01 07:36] LABS: Hematocrit 34.4 % (37.0-53.0); Hemoglobin* 11.1 gm/dL (13.5-17.5); Immature Granulocytes Abs Auto 0.17 K/uL (0.00-0.30); Lymphocytes Percent Auto 8.4 % (20-44); Mean Corpuscular HGB Conc 32 gm/dL (32-36); Mean Corpuscular Hemoglobin 32 pg (26-34); Mean Corpuscular Volume 98 fL (80-100); Monocytes Percent Auto 2.7 % (0.0-11.0); Neutrophils Percent Auto 87.2 % (42.0-72.0); Platelet Count* 300 K/uL (140-440); RDW Coefficient of Variation % 14.2 % (11.5-15.5); Red Blood Count 3.51 m/uL (4.30-5.90); White Blood Count* 9.98 K/uL (4.50-11.00)
[2022-03-01 07:39] LABS: Slide Review Reflex No
[2022-03-01 07:50] LABS: Chloride* 114 mmol/L (96-114); Potassium* 3.5 mmol/L (3.6-5.1); Sodium* 147 mmol/L (135-149)
[2022-03-01 07:53] LABS: Carbon Dioxide* 30 mmol/L (20-32); Creatinine* 0.7 mg/dL (0.5-1.5); Est. Creatinine Clearance* 104.86; Estimated Glomerular Filt Rate 110 ml/min
[2022-03-01 07:54] LABS: Blood Urea Nitrogen* 27 mg/dL (7-30); Calcium* 7.9 mg/dL (8.4-10.6); Glucose* 144 mg/dL (60-115)
[2022-03-01 07:57] LABS: C Reactive Protein* 2.3 mg/dL (0.5-1.0)
[2022-03-01] MEDS: DOCUSATE SODIUM 100 MG CAPSULE PO ×2 (08:41→20:32)
[2022-03-01] MEDS: guaiFENesin 600 MG TAB.ER.12H 1200 MG PO ×2 (08:41→20:31)
[2022-03-01] MEDS: lamoTRIgine 100 MG TABLET PO ×3 (08:41→20:32)
[2022-03-01 11:07] VITALS: BP 121/79; PULSE 68; RESP 20; TEMP 36.5; O2SAT 93
--- NOTE | 2022-03-01 13:27 | P.IMPN_ITS ---
Progress Note: A&P Assessment and plan (1) Aspiration pneumonia: Status: Acute Assessment and Plan: Resolved but this will be chronic in nature at times. Swallowing study this morning showed that he needs nectar thick liquids and pureed foods. He needs small amounts and to be fed. (2) Acute respiratory failure, unspecified whether with hypoxia or hypercapnia: Status: Acute Assessment and Plan: Resolved (3) Lactate blood increased: Status: Acute Assessment and Plan: Resolved (4) Osteomyelitis: Status: Acute Assessment and Plan: Based on sensitivities the patient can be transitioned from Zosyn to Rocephin. I have ordered 2 g Q 24 hours via his PICC line. Awaiting wound VAC placement. (5) Cerebral palsy: Status: Acute Assessment and Plan: Stable (6) Epilepsy: Problem details: last documented seizure in 2004 Status: Acute Assessment and Plan: Stable (7) Developmental non-verbal disorder: Status: Acute Assessment and Plan: Stable Plan Patient will need long-term care center as [facility] feels his care has accelerated and exceeds their abilities. I believe the wound care clinic and doctor Richard have plan to place a wound VAC today. As he has his PICC line [facility] perspective of hospital medicine. Subjective Date Seen: 03/01/22 Interval history: Daily Progress Note - Hospital Medicine Day #: 7 POD # 5, Excisional debridement of sacral decubitus ulcer CC: Osteomyelitis, Infected sacral ulcer, exposed bone. Cerebral palsy. Nonverbal. resolved respiratory distress (02/26) transferred to ICU and dx with aspiration pneumonia. Vital signs reviewed. Patient is on room air currently. However, occasionally and this seems after he eats he will often need supplemental O2 for 2-3 hours. He has been observed to be aspirating. His CBC reflects a stable chronic anemia, a down trending white blood cell count and normal platelets. Chemistries reflect a mildly depressed potassium, down trending CRP Chest x-ray looked clear this morning Review of Systems: See subjective Cardiac: No new chest pain/pressure/palpitations. Respiratory: no new dyspnea. GI: No abdominal bloating Objective: Vitals: see above Lungs: Clear. Cardiac: S1S2. Disposition/Potential discharge - Likely to return to previous living situation. Total time is 35 minutes with greater than 50% spent in counseling and coordination of care. Exam Const: Vital Signs, click to edit/add: Vital Signs - 24 hr 02/28/22 14:09 02/28/22 15:53 02/28/22 15:53 Temperature 98.7 F Pulse Rate [Left R adial] 86 Pulse Rate [Pulse Oximeter] Respiratory Rate 20 20 Blood Pressure [Le ft Arm] Blood Pressure [Ri ght Forearm] 125/64 Pulse Oximetry 90 Oxygen Delivery Me thod Aerosol Mask Oxygen Flow Rate 5 Fraction of Inspir ed Oxygen 28 02/28/22 19:00 02/28/22 22:32 02/28/22 23:00 Temperature 99.2 F 98.9 F Pulse Rate [Left R adial] 73 60 64 Pulse Rate [Pulse Oximeter] 73 60 64 Respiratory Rate 20 20 20 Blood Pressure [Le ft Arm] 130/71 136/66 Blood Pressure [Ri ght Forearm] Pulse Oximetry 92 92 Oxygen Delivery Me thod Room Air Room Air Oxygen Flow Rate Fraction of Inspir ed Oxygen 03/01/22 02:47 03/01/22 07:30 03/01/22 11:07 Temperature 98.7 F 97.7 F 97.7 F Pulse Rate [Left R adial] 75 65 68 Pulse Rate [Pulse Oximeter] 75 Respiratory Rate 20 18 20 Blood Pressure [Le ft Arm] 128/71 129/69 121/79 Blood Pressure [Ri ght Forearm] Pulse Oximetry 94 95 93 Oxygen Delivery Me thod Room Air Room Air Room Air Oxygen Flow Rate Fraction of Inspir ed Oxygen Labs Labs: Laboratory Results - last 24 hr 03/01/22 03/01/22 03/01/22 07:00 07:20 07:20 WBC 9.98 Cancelled RBC 3.51 L Cancelled Hgb 11.1 L Cancelled Hct 34.4 L Cancelled MCV 98 Cancelled MCH 32 Cancelled MCHC 32 Cancelled RDW Coeff of Emmanuel 14.2 Plt Count 300 Cancelled Neut % (Auto) 87.2 H Lymph % (Auto) 8.4 L [place] % (Auto) 2.7 Eos % (Auto) 0.0 Baso % (Auto) 0.0 Neut # (Auto) 8.70 H Lymph # (Auto) 0.80 L [place] # (Auto) 0.30 Eos # (Auto) 0.00 Baso # (Auto) 0.00 Abs Immat Gran (auto) 0.17 Sodium 147 Potassium 3.5 L Chloride 114 Carbon Dioxide 30 BUN 27 Creatinine 0.7 Estimated Creat Clear 104.86 Estimated GFR 110 Glucose 144 H Lactate Calcium 7.9 L C-Reactive Protein 2.3 H 03/01/22 07:20 WBC RBC Hgb Hct MCV MCH MCHC RDW Coeff of Emmanuel Plt Count Neut % (Auto) Lymph % (Auto) [place] % (Auto) Eos % (Auto) Baso % (Auto) Neut # (Auto) Lymph # (Auto) [place] # (Auto) Eos # (Auto) Baso # (Auto) Abs Immat Gran (auto) Sodium Potassium Chloride Carbon Dioxide BUN Creatinine Estimated Creat Clear Estimated GFR Glucose Lactate 1.2 Calcium C-Reactive Protein
[2022-03-01] MEDS: cefTRIAXone 2 GM in 0.9 % SODIUM CHLORIDE Mini-bag 100 ML IVPB (14:16)
[2022-03-01 15:36] VITALS: BP 144/82; PULSE 79; RESP 18; TEMP 36.9; O2SAT 93
[2022-03-01] MEDS: ENOXAPARIN 40 MG/0.4 ML INJ SUBCUT (16:29)
--- NOTE | 2022-03-01 18:32 | PC.NURSE ---
Pt. satting 93-95% RA. Lung sounds coarse crackles and expiratory rhonchi throughout. Moist, intermittent cough. Afebrile. Sacral dressing dry and intact, changed x 1.
[2022-03-01 19:00] VITALS: BP 135/70; PULSE 87; RESP 18; TEMP 36.9; O2SAT 90
[2022-03-01] MEDS: polyethylene glycoL 3350 17 GM PACK PO (20:32)
[2022-03-01] MEDS: MIRTAZAPINE 15 MG TABLET PO (20:32)
[2022-03-01 23:00] VITALS: BP 131/77; PULSE 70; RESP 18; TEMP 36.8; O2SAT 91
[2022-03-02 03:00] VITALS: BP 154/80; PULSE 60; RESP 18; TEMP 36.8; O2SAT 92
[2022-03-02] MEDS: METHYLPREDNISOLONE SOD SUCC 62.5 MG/ML (125) 125 MG IVP ×4 (04:40→20:40)
--- NOTE | 2022-03-02 06:35 | PC.NURSE ---
Patient is non-verbal. Vital signs are normal. Afebrile. Wound dressings as per orders. Small sero-sanguinous drainage. No signs of local infection noted. Repositioned Q2H on the sides. Will continue to monitor and assess
[2022-03-02 07:00] VITALS: BP 143/76; PULSE 88; RESP 18; TEMP 36.9; O2SAT 92
[2022-03-02 07:17] LABS: Hematocrit 35.7 % (37.0-53.0); Hemoglobin* 11.6 gm/dL (13.5-17.5); Mean Corpuscular HGB Conc 33 gm/dL (32-36); Mean Corpuscular Hemoglobin 32 pg (26-34); Mean Corpuscular Volume 98 fL (80-100); Platelet Count* 301 K/uL (140-440); Red Blood Count 3.63 m/uL (4.30-5.90); White Blood Count* 8.09 K/uL (4.50-11.00)
[2022-03-02 07:22] LABS: Chloride* 115 mmol/L (96-114); Potassium* 3.7 mmol/L (3.6-5.1); Sodium* 150 mmol/L (135-149)
[2022-03-02 07:25] LABS: Blood Urea Nitrogen* 30 mg/dL (7-30); Carbon Dioxide* 32 mmol/L (20-32); Creatinine* 0.7 mg/dL (0.5-1.5); Est. Creatinine Clearance* 104.86; Estimated Glomerular Filt Rate 110 ml/min
[2022-03-02 07:26] LABS: Calcium* 8.2 mg/dL (8.4-10.6); Glucose* 142 mg/dL (60-115)
[2022-03-02 07:28] LABS: Slide Review Reflex No
[2022-03-02] MEDS: guaiFENesin 600 MG TAB.ER.12H 1200 MG PO ×2 (09:07→20:40)
[2022-03-02] MEDS: lamoTRIgine 100 MG TABLET PO ×3 (09:07→20:41)
[2022-03-02] MEDS: SODIUM CHLORIDE 0.9 % (FLUSH) 10 ML SYRINGE IVF ×2 (09:10→10:56)
--- NOTE | 2022-03-02 10:11 | P.IMPN_ITS ---
Progress Note: A&P Assessment and plan (1) Aspiration pneumonia: Status: Acute Assessment and Plan: Continue nectar thickened liquids per swallow study. Recommend offering thickened liquids throughout the day as to minimize dehydration and resultant h ypernatremia. (2) Acute respiratory failure with hypoxia: Status: Acute Assessment and Plan: This is secondary to aspiration pneumonia, currently stable on room air, intermittently requiring supplemental oxygen. (3) Cerebral palsy: Status: Acute Assessment and Plan: Stable, at baseline. Associated seizure d/o is quiescent (last documented seizure 2004). (4) Osteomyelitis: Status: Acute Assessment and Plan: POD #6 from I&D with General Surgery. Will need retirement IV abx per PICC line (based on sensitivities, Rocephin 2g/24 hours). (5) Normocytic anemia: Status: Acute Assessment and Plan: Stable, no evidence of acute bleeding (6) Hypernatremia: Status: Acute Assessment and Plan: Will give increased IV fluids today and follow sodium, recommend regular offerings of thickened liquids to prevent dehydration and future hyponatremia in a patient who is unable to communicate thirst. Plan Continue Ceftriaxone per PICC given osteomyelitis. Patient stable on RA, reassuring CXR on 03/01. Wound vac being placed today with General Surgery. On Lovenox for prophylaxis. Will require higher LOC upon discharge, likely transfer to the [facility] tomorrow. Time Spent With Patient Total time spent: 35, >75% in coordination of care Subjective Date Seen: 03/02/22 Interval history: No acute events overnight. Patient noted to have hypernatremia today. Not able to communicate thirst, minimal po intake has been provided given aspiration risk. Wound VAC to be placed by General surgery today. Exam Narrative: Exam Narrative: GEN: Awake and laying comfortably in bed, nonverbal per baseline. Not tachypneic, not in distress HEENT: Normal external ears, EOMIs bilaterally, no scleral icterus CV: RRR, No concerning murmurs, rubs, or gallops R: Intermittent coughing during exam, decreased breath sounds bilateral bases with rhonchi noted bilaterally Ext: thin without concerning edema Skin: No concerning skin lesions or rashes on exposed skin Neuro: Appropriate per baseline, + spasticity all 4 extremities, wearing braces on bilateral wrists Const: Vital Signs, click to edit/add: Vital Signs - 24 hr 03/01/22 11:07 03/01/22 15:36 03/01/22 19:00 Temperature 97.7 F 98.4 F 98.5 F Pulse Rate [Left R adial] 68 79 87 Pulse Rate [Pulse Oximeter] 87 Respiratory Rate 20 18 18 Blood Pressure [Le ft Arm] 121/79 144/82 H 135/70 Pulse Oximetry 93 93 90 Oxygen Delivery De thod Room Air Room Air Room Air 03/01/22 23:00 03/01/22 23:00 03/02/22 03:00 Temperature 98.2 F 98.2 F Pulse Rate [Left R adial] 70 70 60 Pulse Rate [Pulse Oximeter] 70 70 60 Respiratory Rate 18 18 18 Blood Pressure [Le ft Arm] 131/77 154/80 H Pulse Oximetry 91 92 Oxygen Delivery De thod Room Air Room Air 03/02/22 07:00 Temperature 98.4 F Pulse Rate [Left R adial] 88 Pulse Rate [Pulse Oximeter] Respiratory Rate 18 Blood Pressure [Le ft Arm] 143/76 H Pulse Oximetry 92 Oxygen Delivery De thod Room Air Labs Labs: Laboratory Results - last 24 hr 03/02/22 03/02/22 06:50 06:50 WBC 8.09 RBC 3.63 L Hgb 11.6 L Hct 35.7 L MCV 98 MCH 32 MCHC 33 Plt Count 301 Sodium 150 H Potassium 3.7 Chloride 115 H Carbon Dioxide 32 BUN 30 Creatinine 0.7 Estimated Creat Clear 104.86 Estimated GFR 110 Glucose 142 H Calcium 8.2 L
[2022-03-02] MEDS: 5 % DEXTROSE IN LAC RINGER'S 1,000 ML 125 ML IV ×2 (10:43→18:50)
[2022-03-02 11:00] VITALS: BP 142/78; PULSE 81; RESP 18; TEMP 36.7; O2SAT 90
--- NOTE | 2022-03-02 11:12 | PC.SOCIAL ---
Pt. has been accepted to the [facility] for admission tomorrow. [facility] transport is set up for 1:00pm. A message was left for pt.'s home health care case manager Norma Sanchez to complete the level 2 screening. Pt.'s mother has been updated on the discharge.
--- NOTE | 2022-03-02 12:41 | P.PCN_ITS ---
Procedure Note Date Seen: 03/02/22 Date of procedure: 03/02/22 Will [facility] bill your pro fee for this procedure?: Yes Pre-op diagnosis: Sacral decubitus ulcer stage IV Post-op diagnosis: same Procedure: Placement of wound VAC Procedure Description: Patient was positioned in the left lateral. His previously placed sacral wet to dry dressing was taking down. Wound bed with evidence of healthy granulation tissue, bone is apparent but healthy in appearance. No obvious necrotic tissue and no significant slough or fibrinous exudate. The black foam was cut to size to fit into the wound, with no overlap on skin edges. A bridge was formed to go towards the patient's right hip, in order to offload on the plastic components of the device. The outer Tegaderm dressing was applied to allow for an adequate seal and the wound VAC placed on 125 mm mercury continuous pressure. An adequate seal was confirmed and patient tolerated procedure well. Anesthesia: none Surgeon: Estelle Ramso MD Estimated blood loss (mL): 0 Pathology: none sent Condition: stable Disposition: floor
[2022-03-02 15:00] VITALS: BP 143/76; PULSE 81; PULSE 82; RESP 16; RESP 18; TEMP 36.9; O2SAT 92
[2022-03-02] MEDS: cefTRIAXone 2 GM in 0.9 % SODIUM CHLORIDE Mini-bag 100 ML IVPB (15:18)
[2022-03-02] MEDS: ENOXAPARIN 40 MG/0.4 ML INJ SUBCUT (17:01)
--- NOTE | 2022-03-02 17:57 | PC.NURSE ---
End Of Shift Note: Patient had a wound vac placed today has tolerated that and has been doing what it needs to do no noticeable leak. He has been T & R every 2 hours. Did remove his braces for his hands for a hour as noted areas of pressure starting. After hour braces re applied and no areas of pressure noted. Will continue to monitor
[2022-03-02 19:00] VITALS: BP 145/77; PULSE 85; RESP 24; TEMP 37.4; O2SAT 92
[2022-03-02] MEDS: DOCUSATE SODIUM 100 MG CAPSULE PO (20:40)
[2022-03-02] MEDS: MIRTAZAPINE 15 MG TABLET PO (20:41)
[2022-03-02 23:00] VITALS: BP 149/79; PULSE 83; RESP 22; TEMP 36.7; O2SAT 92
[2022-03-03] MEDS: METHYLPREDNISOLONE SOD SUCC 62.5 MG/ML (125) 125 MG IVP ×2 (01:56→09:27)
[2022-03-03] MEDS: SODIUM CHLORIDE 0.9 % (FLUSH) 10 ML SYRINGE IVF ×2 (02:02→09:27)
[2022-03-03 03:00] VITALS: BP 144/76; PULSE 85; RESP 24; TEMP 36.8; O2SAT 92
[2022-03-03 07:00] VITALS: BP 143/74; PULSE 86; RESP 16; RESP 18; TEMP 37; O2SAT 90
[2022-03-03 07:26] VITALS: RESP 24; TEMP 36.8
--- NOTE | 2022-03-03 07:39 | PC.NURSE ---
[id number]: Patient cooperative with cares. Frequent T&R. Incontinent of B&B. Non-verbal w/Hx cerebral palsy. PICC patent. Feeder with thickened liquids. Good appetite. O2 sats >90% on RA. Wound vac to sacral region draining scant amounts of serosanguineous drainage.
[2022-03-03 07:43] LABS: Hematocrit 36.2 % (37.0-53.0); Hemoglobin* 11.7 gm/dL (13.5-17.5); Immature Granulocytes Abs Auto 0.54 K/uL (0.00-0.30); Lymphocytes Percent Auto 11.8 % (20-44); Mean Corpuscular HGB Conc 32 gm/dL (32-36); Mean Corpuscular Hemoglobin 32 pg (26-34); Mean Corpuscular Volume 100 fL (80-100); Monocytes Percent Auto 3.8 % (0.0-11.0); Neutrophils Percent Auto 78.9 % (42.0-72.0); Platelet Count* 320 K/uL (140-440); RDW Coefficient of Variation % 14.2 % (11.5-15.5); Red Blood Count 3.64 m/uL (4.30-5.90); White Blood Count* 9.78 K/uL (4.50-11.00)
[2022-03-03 07:55] LABS: Slide Review Reflex No
[2022-03-03 07:57] LABS: Chloride* 115 mmol/L (96-114); Sodium* 149 mmol/L (135-149)
[2022-03-03 08:00] LABS: Creatinine* 0.7 mg/dL (0.5-1.5); Est. Creatinine Clearance* 104.86; Estimated Glomerular Filt Rate 110 ml/min
[2022-03-03 08:01] LABS: Blood Urea Nitrogen* 27 mg/dL (7-30); Calcium* 8.5 mg/dL (8.4-10.6); Carbon Dioxide* 28 mmol/L (20-32); Glucose* 162 mg/dL (60-115)
[2022-03-03] MEDS: DOCUSATE SODIUM 100 MG CAPSULE PO (09:26)
[2022-03-03] MEDS: lamoTRIgine 100 MG TABLET PO (09:26)
[2022-03-03] MEDS: guaiFENesin 600 MG TAB.ER.12H 1200 MG PO (09:26)
--- NOTE | 2022-03-03 13:08 | PC.NURSE ---
Patient was discharge to the [facility]. Called report to the nursing staff their to give nurse to nurse report. All questions answered. Patient left per wheel chair with wound vac in place.
--- NOTE | 2022-03-03 13:52 | P.DS_ITS ---
DS: Providers Provider Date Seen: 03/03/22 Date of admission: 02/23/22 14:54 Admitting Clinician: Eric Samuels MD Consults: 02/23/22 13:43 Consult to Physician [CONS] Routine Comment: Consulting Provider: Eric Samuels Has provider been notified: Yes 02/26/22 19:28 Consult to Speech Therapy [CONS] Routine Comment: Reason(s) for Speech Consult:: Speech/Swallowing Eval Comment: Aspiration event in hospital Attending Physician on discharge: Delfina Antonio MD Date of Discharge: 03/03/22 DS: Diagnosis Discharge Diagnosis (1) Acute respiratory failure with hypoxia: Status: Acute (2) Aspiration pneumonia: Status: Acute (3) Osteomyelitis: Status: Acute (4) Cerebral palsy: Status: Acute (5) Hypernatremia: Status: Acute (6) Normocytic anemia: Status: Acute (7) Developmental non-verbal disorder: Status: Acute (8) Pressure ulcer: Status: Acute (9) Constipation, chronic: Status: Acute (10) Epilepsy: Status: Acute Problem details: last documented seizure in 2004 DS: Summary Hospital Course Hospital Course: Aditya White) is a 56-year-old male with cerebral palsy and chronic nonverbal, nonambulatory status who was directly admitted to the [facility] for concerns of a sacral ulcer that developed osteomyelitis. Patient was taken to the OR with general surgery for debridement; both wound and bone sources grew pansensitive Proteus and E coli. Blood cultures remain negative throughout stay. PICC line was placed during stay and patient was started on Vancomycin and Ceftriaxone on admission, transitioned to Ceftriaxone as solo agent upon discharge. Wound VAC was placed on 03/02, patient will follow-up with wound care upon discharge. On hospital day 3, patient developed acute hypoxic respiratory failure and was found to have a pneumonia secondary to aspiration. This was treated with Zosyn; patient also completed a 5 day course of steroids. He was seen by speech therapy, who recommend continued nectar thickened liquids. Patient is high risk for dehydration, given his inability to communicate thirst; he was noted to have hypernatremia during stay which improved with IV fluids and increased offerings of thickened liquids orally. Given patient's new wound VAC and PICC line, he was able to return to his previous shelter living setting; he is discharged to SNF care on 03/03 Status at Discharge Functional status at discharge: wheelchair bound Overall status at discharge: patient is back to baseline Time Spent with Patient Time attestation: Total time spent providing and/or coordinating discharge services: Time spent: Greater than 30 minutes Exam Narrative: Exam Narrative: GEN:? Awake and laying in bed without any pain mitigating movements, nonverbal per baseline.? Not tachypneic, does not appear to be in distress HEENT: Normal external ears, EOMIs bilaterally, no scleral icterus CV: RRR, No concerning murmurs, rubs, or gallops R: Intermittent coughing during exam, decreased breath sounds bilateral bases Ext: thin without concerning edema Skin: No concerning skin lesions or rashes on exposed skin Neuro: Appropriate per baseline, + spasticity all 4 extremities Const: Vital Signs, click to edit/add: Vital Signs - 24 hr 03/02/22 15:00 03/02/22 15:00 03/02/22 19:00 Temperature 98.4 F 99.3 F Pulse Rate [Left R adial] 81 82 85 Respiratory Rate 18 16 24 Blood Pressure [Le ft Arm] 143/76 H 145/77 H Pulse Oximetry 92 92 Oxygen Delivery Me thod Room Air Room Air 03/02/22 23:00 03/03/22 03:00 03/03/22 07:26 Temperature 98.0 F 98.3 F 98.3 F Pulse Rate [Left R adial] 83 85 Respiratory Rate 22 24 24 Blood Pressure [Le ft Arm] 149/79 H 144/76 H Pulse Oximetry 92 92 Oxygen Delivery Me thod Room Air Room Air 03/03/22 07:00 03/03/22 07:00 Temperature 98.6 F Pulse Rate [Left R adial] 86 86 Respiratory Rate 16 18 Blood Pressure [Le ft Arm] 143/74 H Pulse Oximetry 90 Oxygen Delivery Me thod Room Air DS: Data Data Completed and Pending Labs on day of discharge: Labs from last 24 hours 03/03/22 03/03/22 07:03 07:03 WBC 9.78 RBC 3.64 L Hgb 11.7 L Hct 36.2 L MCV 100 MCH 32 MCHC 32 RDW Coeff of Emmanuel 14.2 Plt Count 320 Neut % (Auto) 78.9 H Lymph % (Auto) 11.8 L Alexandria % (Auto) 3.8 Eos % (Auto) 0.0 Baso % (Auto) 0.0 Neut # (Auto) 7.70 H Lymph # (Auto) 1.20 [place] # (Auto) 0.40 Eos # (Auto) 0.00 Baso # (Auto) 0.00 Abs Immat Gran (auto) 0.54 H Sodium 149 Potassium 4.0 Chloride 115 H Carbon Dioxide 28 BUN 27 Creatinine 0.7 Estimated Creat Clear 104.86 Estimated GFR 110 Glucose 162 H Calcium 8.5 Discharge Plan Discharge Disposition: er [facility] Date of Admission: 02/23/22 14:54 Attending Provider on Discharge: Delfina Antonio Consulting Providers: Eric Samuels Condition: Stable Anticipated Discharge Date/Time: 03/03/22 13:00 Discharge Medications: New acetaminophen 325 mg Tablet 650 mg PO Q6H PRNQty: 30 0RF ceftriaxone 2 gram Recon Soln 2 g IVPB Q24H 35 Days Qty: 25 0RF guaifenesin [Mucinex] 600 mg Tablet Extended Release 12hr 1,200 mg PO BID PRN (Reason: cough) Qty: 30 0RF sodium chloride 0.9 % (flush) [Normal Saline Flush] Syringe 10 ml IVF .FLUSH PRNQty: 2.5 0RF Continued lamotrigine 100 mg tablet 100 mg PO TID docusate sodium 100 mg capsule 100 mg PO TID calcium carbonate-vitamin D3 600 mg-10 mcg (400 unit) tablet 1 tab PO DAILY mirtazapine 15 mg tablet 15 mg PO HS fluoride (sodium) 1.1 % gel 1 applic dental HS Label Comments: APPLY ONE APPLICATION DENTAL ONCE DAILY - PEA SIZED AMOUNT chlorhexidine gluconate 0.12 % mouthwash 30 ml buccal DAILY Label Comments: APPLY TO TEETH AND GUMS Ear Drops (carbamide peroxide) 6.5 % drops 5 drp otic (ear) HS PRN Label Comments: INSTILL FIVE DROPS IN BOTH EARS THE 1ST THREE DAYS OF EVERY MONTH AT BEDTIME DIRECTED Enema Disposable 19-7 gram/118 mL enema 118 ml UT DAILY PRN (Reason: constipation) polyethylene glycol 3350 17 gram/dose powder 17 g PO QPM lorazepam 1 mg tablet 1 mg PO PRN Label Comments: TAKE ONE TABLET BY MOUTH 90 MINUTES PRIOR TO DENTAL APPOINTMENT NEEDED FOR ANXIETY Discharge Orders: Discharge Order (Routine); Ordered 03/03/22 Ordered By: Delfina Antonio Activity Restrictions/Additional Instructions: Oxygen at 1-2L NC prn to keep saturations >90%. Clint thickened liquids. Please offer liquids Q2-3 hours in this patient who cannot communicate thirst; patient is high risk to become dehydrated. Continue IV ceftriaxone for total of 6 weeks of antibiotic Activity Level: Other Activity Detail: Per previous, patient is nonambulatory. Wrist braces Discharge Diet: Other Diet Detail: Thickened liquids per previous
== END 2022-03-03 13:09 | DRG 515 ==
PROVIDERS: Family Medicine; Surgery; Admitting Provider Family Medicine; Visit Provider Family Medicine
PROC: 0QB10ZZ Excision of Sacrum, Open Approach (ICD-10-PCS; principal; 2022-02-24 07:00)
DX: M46.28 Osteomyelitis of vertebra, sacral and sacrococcygeal region (principal); L89.154 Pressure ulcer of sacral region, stage 4; J96.01 Acute respiratory failure with hypoxia; J69.0 Pneumonitis due to inhalation of food and vomit; E87.0 Hyperosmolality and hypernatremia; G80.9 Cerebral palsy, unspecified; G40.909 Epilepsy, unspecified, not intractable, without status epilepticus; K59.09 Other constipation; F88 Other disorders of psychological development; D64.9 Anemia, unspecified
CPT/HCPCS: 00300; 36415; 36573; 36600; 71045; 71250; 72195; 80048; 80053; 80202; 82330; 82550; 82803; 83605; 83735; 83880; 84145; 84484; 85025; 85027; 85610; 85651; 86140; 87040; 87186; 87205; 87502; 87634; 87635; 87641; 92610; 94664; 94761; A9270; C1751; J0696; J1650; J1940; J2543; J2704; J2930; J3370; J3490; J7050; J7120

== ENCOUNTER 2023-01-25 09:40 | Outpatient (CLI) | payer MEDICARE, MEDICAID, SELFPAY | END 2023-01-25 09:41 | disposition home or self-care (01) | LOC: WOUND 09:40 | PROVIDERS: PCP Family Medicine; Visit Provider Surgery | DX: L89.154 Pressure ulcer of sacral region, stage 4 (principal) | CPT/HCPCS: 97597; 99213 ==

== ENCOUNTER 2023-02-01 11:13 | Outpatient (CLI) | payer MEDICARE, MEDICAID, SELFPAY | END 2023-02-01 11:14 | disposition home or self-care (01) | LOC: WOUND 11:14 | PROVIDERS: PCP Family Medicine; Visit Provider Physician Assistant Surgical | DX: L89.154 Pressure ulcer of sacral region, stage 4 (principal) | CPT/HCPCS: 11042 ==

== ENCOUNTER 2023-02-08 07:58 | Outpatient (CLI) | payer MEDICARE, MEDICAID, SELFPAY | END 2023-02-08 07:59 | disposition home or self-care (01) | LOC: WOUND 07:59 | PROVIDERS: PCP Family Medicine; Visit Provider Surgery | DX: L89.154 Pressure ulcer of sacral region, stage 4 (principal) | CPT/HCPCS: 97597 ==

== ENCOUNTER 2023-02-15 09:32 | Outpatient (CLI) | payer MEDICARE, MEDICAID, SELFPAY | END 2023-02-15 09:33 | disposition home or self-care (01) | LOC: WOUND 09:33 | PROVIDERS: PCP Family Medicine; Visit Provider Surgery | DX: L89.154 Pressure ulcer of sacral region, stage 4 (principal) | CPT/HCPCS: 97597 ==

== ENCOUNTER 2023-02-22 09:31 | Outpatient (CLI) | payer MEDICARE, MEDICAID, SELFPAY | END 2023-02-22 09:32 | disposition home or self-care (01) | LOC: WOUND 09:31 | PROVIDERS: PCP Family Medicine; Visit Provider Surgery | DX: L89.154 Pressure ulcer of sacral region, stage 4 (principal) | CPT/HCPCS: 97597 ==

== ENCOUNTER 2023-03-08 09:56 | Outpatient (CLI) | payer MEDICARE, MEDICAID, SELFPAY | END 2023-03-08 09:57 | disposition home or self-care (01) | LOC: WOUND 09:57 | PROVIDERS: PCP Family Medicine; Visit Provider Surgery | DX: L89.154 Pressure ulcer of sacral region, stage 4 (principal) | CPT/HCPCS: 97597 ==

== ENCOUNTER 2023-03-22 15:17 | Outpatient (CLI) | payer MEDICARE, MEDICAID, SELFPAY | END 2023-03-22 15:18 | disposition home or self-care (01) | LOC: WOUND 15:17 | PROVIDERS: PCP Family Medicine; Visit Provider Surgery | DX: L89.154 Pressure ulcer of sacral region, stage 4 (principal) | CPT/HCPCS: 97597 ==

== ENCOUNTER 2023-04-05 10:02 | Outpatient (CLI) | payer MEDICARE, MEDICAID, SELFPAY | END 2023-04-05 10:03 | disposition home or self-care (01) | LOC: WOUND 10:03 | PROVIDERS: PCP Family Medicine; Visit Provider Surgery | DX: L89.154 Pressure ulcer of sacral region, stage 4 (principal) | CPT/HCPCS: 97597 ==

== ENCOUNTER 2023-04-19 09:46 | Outpatient (CLI) | payer MEDICARE, MEDICAID, SELFPAY | END 2023-04-19 09:47 | disposition home or self-care (01) | LOC: WOUND 09:47 | PROVIDERS: PCP Family Medicine; Visit Provider Surgery | DX: L89.154 Pressure ulcer of sacral region, stage 4 (principal) | CPT/HCPCS: 97597 ==

== ENCOUNTER 2023-05-17 09:52 | Outpatient (CLI) | payer MEDICARE, MEDICAID, SELFPAY | END 2023-05-17 09:53 | disposition home or self-care (01) | PROVIDERS: PCP Family Medicine; Visit Provider Surgery | DX: L89.154 Pressure ulcer of sacral region, stage 4 (principal); L89.313 Pressure ulcer of right buttock, stage 3; L89.322 Pressure ulcer of left buttock, stage 2 | CPT/HCPCS: 99214 ==

== ENCOUNTER 2023-05-24 10:22 | Outpatient (CLI) | payer MEDICARE, MEDICAID, SELFPAY | END 2023-05-24 10:23 | disposition home or self-care (01) | LOC: WOUND 10:22 | PROVIDERS: PCP Family Medicine; Visit Provider Surgery | DX: L89.154 Pressure ulcer of sacral region, stage 4 (principal); L89.313 Pressure ulcer of right buttock, stage 3; G80.9 Cerebral palsy, unspecified; Z99.3 Dependence on wheelchair | CPT/HCPCS: 11043; 97597 ==

== ENCOUNTER 2023-05-31 09:04 | Outpatient (CLI) | payer MEDICARE, MEDICAID, SELFPAY | END 2023-05-31 09:05 | disposition home or self-care (01) | LOC: WOUND 09:05 | PROVIDERS: PCP Family Medicine; Visit Provider Surgery | DX: L89.154 Pressure ulcer of sacral region, stage 4 (principal); L89.313 Pressure ulcer of right buttock, stage 3 | CPT/HCPCS: 97597 ==

== ENCOUNTER 2023-06-07 08:39 | Outpatient (CLI) | payer MEDICARE, MEDICAID, SELFPAY | END 2023-06-07 08:40 | disposition home or self-care (01) | PROVIDERS: PCP Family Medicine; Visit Provider Surgery | DX: L89.154 Pressure ulcer of sacral region, stage 4 (principal); L89.313 Pressure ulcer of right buttock, stage 3 | CPT/HCPCS: 97597; 99212 ==

== ENCOUNTER 2023-06-21 09:53 | Outpatient (CLI) | payer MEDICARE, MEDICAID, SELFPAY | END 2023-06-21 09:54 | disposition home or self-care (01) | LOC: WOUND 09:54 | PROVIDERS: PCP Family Medicine; Visit Provider Surgery | DX: L89.154 Pressure ulcer of sacral region, stage 4 (principal); L89.313 Pressure ulcer of right buttock, stage 3 | CPT/HCPCS: 11042 ==

== ENCOUNTER 2023-07-12 10:05 | Outpatient (CLI) | payer MEDICARE, MEDICAID, SELFPAY | END 2023-07-12 10:06 | disposition home or self-care (01) | LOC: WOUND 10:06 | PROVIDERS: PCP Family Medicine; Visit Provider Physician Assistant Surgical | DX: L89.154 Pressure ulcer of sacral region, stage 4 (principal); L89.313 Pressure ulcer of right buttock, stage 3 | CPT/HCPCS: 11042 ==

== ENCOUNTER 2023-08-02 10:03 | Outpatient (CLI) | payer MEDICARE, MEDICAID, SELFPAY ==
--- OUTSIDE RECORDS SUMMARY | 2023-08-02 10:06 | XMS_ITS | Clinical Summary ---
Author Name Unknown Organization [facility] Address [address] [place] [address] Care Team Providers Care Napper Fixer Name Role Phone Sienna Snider M.D. Primary Care Provider [phone] Source Comments Patient records contain information from all sites at [facility]. For routine questions regarding patient records, call [phone] during business hours, M-F 8:00 AM - 5:00 PM Central Time. Record requests for emergency care only can be directed to [phone] at any time.[facility] Allergies Active Allergy Reactions Criticality Noted Date Comments Erythromycin Other (see comments) 03/31/2014 Sulfa (Sulfonamide Antibiotics) Other (see comments) 01/12/2010 Reaction not recorded Terfenadine Other (see comments) 01/20/2018 Medications Medication Sig Dispensed Refills Start Date End Date Status acetaminophen (TYLENOL) 325 mg tablet Take 650 mg by mouth every 6 (six) hours as needed for pain. 0 Active starch, thickening, (Thick-It) powderIndicatio ns:Dysphagia For use to obtain nectar thick liquids 1020 g 11 10/12/2020 Active food supplemt, lactose-reduced (Ensure) liquidIndicatio ns:Loss Weight Abnormal Take 1 Can by mouth 2 (two) times a day. 60 Can 11 11/09/2020 Active sodium phosphates (Enema Disposable) 19-7 gram/118 mL enema FOR EVERY THRID DAY IF NO BM, NEEDED FOR CONSTIPATION. FOLLOW PACKAGE DIRECTIONS 399 mL 3 06/25/2021 Active docusate sodium (COLACE) 100 mg capsule TAKE ONE CAPSULE BY MOUTH THREE TIMES A DAY 270 capsule 3 02/18/2022 Active nystatin (NYSTOP) 100,000 unit/gram powder Apply 1 application topically 3 (three) times a day. 15 g 0 03/14/2022 Active Additional Information Patient not taking.Reported on 12/30/2022 NaCl 0.9% parenteral solution with morphine 50 mg/mL solution STENOGRAPHER SECRETARY cassette daily. 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 270 tablet 1 03/22/2023 Active Ear Drops, carbamide peroxide, 6.5 % otic solution INSTILL FIVE DROPS IN BOTH EARS THE 1ST THREE DAYS OF EVERY MONTH AT BEDTIME DIRECTED 30 mL 3 04/03/2023 Active triamcinolone (KENALOG) 0.1 % cream APPLY TWICE DAILY TO RASH UNTIL CLEAR. 15 g 1 05/18/2023 Active morphine 10 mg/5 mL solutionIndicat ions:Chronic Pain/Nonacute Pain Take 2.5 mL (5 mg total) by mouth 2 (two) times a day as needed for pain Indication: Chronic Pain/Nonacute Pain. 150 mL 0 06/14/2023 Active oxyCODONE (ROXICODONE) 5 mg immediate release tabletIndicatio ns:Chronic Pain/Nonacute Pain Take 1 tablet (5 mg total) by mouth every 4 (four) hours as needed for moderate pain or score 4-6 of 10 Indication: Chronic Pain/Nonacute Pain. 30 tablet 0 06/20/2023 Active polyethylene glycol (MIRALAX) 17 gram/dose oral powder Take 17 g by mouth daily. 510 g 11 07/24/2023 Active polyethylene glycol (GLYCOLAX) 17 gram/dose oral powder Take 17 g by mouth daily. 0 11/17/2017 4 Discontinue d(Reorder) Active Problems Patient Care Coordination No te Formatting of this note migh t be different from the original. [facility] phone number [phone] fax # [phone] Problem Noted Date Diagnosed Date Pressure Injury (Ulcer) Of Sacral Region Stage 4 03/20/2022 Last Assessment & Plan: Wound VAC is changed 3 times weekly and he continues to be followed by [facility]. Dysphagia 03/20/2022 Overview: He is on a mechanical soft diet with nectar consistency liquids. Episode of aspiration pneumonia with hypoxia acute respiratory failure while hospitalized 03/03/2022. Last Assessment & Plan: Aspiration precautions. Osteomyelitis Of Vertebra Lumbosacral Region Overview: Followed by [facility] for sacral decubitus. Hospitalized 03/03/2022 with osteomyelitis. Last Assessment & Plan: He is receiving ceftriaxone 2 g every 24 hours via PICC line for a 6 week course of therapy. Pneumonitis Due To Inhalation Of Food And Vomit 03/04/2022 Last Assessment & Plan: Resolving. Chest x-ray 03/01/2022 was improved. He will be completing 5 weeks of ceftriaxone 2 g daily. He will also continue with guaifenesin 1200 mg twice daily. He is on a minced and moist diet with thickened liquids to help prevent aspiration Non-Pressure Chronic Ulcer O f Buttock Limited To Breakdown Of Skin 09/13/2021 Loss Weight Abnormal 09/13/2021 Mobility Limited 09/13/2021 Overview: He transfers with Brooke lift and mobilizes with wheelchair. 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 He has not had seizure in several years on current regimen. Encounters Date Type Department Care Team Description 07/24/2023 Refill Department of [facility], [address] [phone] Sienna Snider M.D. Med Refill 06/13/2023 Clinical Communication Department of [facility], in [address] [place] [address] Sienna Snider M.D. New Med Request (Alternate form of morphine requested by pharmacy) 05/26/2023 1:10 PM SKIVER COUNTER Immunization Department of [facility], [address] [phone] 05/19/2023 Refill Department of [facility], [place] [address] [place] [phone] Sienna Snider M.D. Med Refill 05/16/2023 Refill Department [facility], [address] [place] [address] Gary Henry, P.A.-C., P.A. Med Refill from Last 3 Months Immunizations Name Administration Dates Next Due H1N1 All Forms 06/25/2009 Influenza (IM) Preservative Free 05/24/2018 Influenza, Seasonal, Injectable 05/09/20 12,05/10/2011,05/19/2010,2007,05/08/2007 Influenza, Unspecified 05/12/2016,05/19/2015, SARS-COV-2 (COVID-19) - MODERNA 09/09/2020,08/12 SARS-COV-2 (COVID-19) - MODE RNA (12 YEARS AND OLDER) [id number] 05/26/2023 SARS-COV-2 (COVID-19) - PFIZ ER BIVALENT TS(12 YEARS OR OLDER) 12/30/2022 Td (Adult), adsorbed 10/29/2002 Tdap 12/30/2022,03/06/2012 influenza vaccine quad (FLUZONE/FLUARIX) (6 months and older)(PF) 05/26/2023,06/04/2022,07/12/2021,2020,05/29/2020,05/15/2019,05/24/2018,1 ,05/15/2013 Family History Medical History Relation Name Comments Osteoarthritis Father Breast cancer Mother Depression Mother Hyperlipidemia Mother Hypertension Mother Depression Sister Osteoarthritis Sister Relation Name Status Comments Brother abhishek Alive Father Mother Sister Social History Tobacco Use Types Packs/Day Years Used Date Smoking Tobacco: Never Smokeless Tobacco: Never Tobacco Cessation:Counseling Given: Not Answered Alcohol Use Standard Drinks/Week Comments No 0 (1 standard drink = 0.6 oz pur e alcohol) PHQ-2 Answer Date Recorded PHQ-2 Score 0 10/27/2020 Nutrition Answer Date Recorded Nutrition: EVOO Fat Source Unknown 09/07 Nutrition: Servings of Fruits/Vegetables per Day Not on file 09/07/2020 Dental Answer Date Recorded Dental: Regular Dentist Unknown 09/07/19 21 Sex and Gender Information Value Date Recorded Sex Assigned at Male 04/13/2018 8:53 AM CDT Gender Identity Male 04/13/2018 8:53 AM CDT Sexual Orientation Don't know 04/13/2018 8: 53 AM CDT Last Filed Vital Signs Vital Sign Reading Time Taken Comments Blood Pressure 127/73 03/22/2023 10:13 AM CDT Pulse 68 03/22/2023 10:13 AM CDT Temperature 36.1 ??C (97 ??F) 12/30/2022 9:55 AM CDT Respiratory Rate 24 12/30/2022 9:55 AM CDT Oxygen Saturation 93% 03/14/2022 12:57 PM CDT Inhaled Oxygen Concentration - - Weight 56.7 kg (125 lb) 03/22/2023 10:13 AM CDT reported Height 170.2 cm (5' 7.01) 03/22/2023 10:13 AM C DT reported Body Mass Index 19.57 03/22/2023 10:13 AM CDT Plan of Treatment Health Maintenance Due Date Last Done Comments Hepatitis B Vaccines (1 of 3 - 3-dose series) 1965 Zoster Vaccines (1 of 2) 12/24/2017 DTaP,Tdap,and Td Vaccines (3 - Td or Tdap) 12/30/2032 12/30/2022, 03/06/2012, 10/29/2002 Cologuard Discontinued 09/05/2018, 08/27/2018 Colorectal Cancer Screening Discontinued COVID-19 Vaccine Completed 05/26/2023, , 05/12/2021, Additional history exists Influenza Vaccine Completed 05/26/2023, , 07/12/2021, Additional history exists CT Colonography Discontinued Colonoscopy Discontinued FIT Discontinued Pneumococcal vaccine (0-64 years) Aged Out No longer eligible based on patient's age to complete this topic Medical Devices Implanted Type Area Freight Weigher Device Identifier Shelf Expiration Date Model / Serial / Lot Clp Hrzn Ti 6 Mario Alberto Chowdhury Jose Cruz - [id number] Implanted:Qty: 1 on 05/22/2018 by Gary Porter M.D. at [facility] Hardware e.g. pins/screws/ rods N/A: [employer] [id number] / / Advance Directives For more information, please contact: [phone] Latest Code Status on File Code Status Date Activated Date Inactivated Comments DNR/DNI 03/12/2022 2:00 PM 03/14/2022 6:24 PM Code Status History Code Status Date Activated Date Inactivated Comments Full Code 03/11/2022 7:25 PM 03/12/2022 2:00 PM Question Answer Comments Full Code: Not Discussed Due to: Patient does not have the capaci ty Full Code 05/22/2018 10:24 AM 05/23/2018 2:44 PM Question Answer Comments Full Code: Discussed Care Teams Napper Fixer Relationship Specialty Start Date End Date Sienna Snider M.D. [address] [place] [phone] PCP - General Family Medicine 03/22/22
--- OUTSIDE RECORDS SUMMARY | 2023-08-02 10:06 | XMS_ITS | Encounter Summary ---
Author Name Unknown Organization [facility] Address [address] [place] [address] Care Team Providers Care Poultry Dressing Worker Name Role Phone Sienna Snider M.D. Primary Care Provider Reason for Visit * Reason Comments Med Refill Encounter Details Date Type Department Care Team (Late st Contact Info) Description 03/23/2023 Refill Department of Neurology in [place], [place] [address] [place] [phone] Kong Aguilar M.D., M.P.H. [address] [place] [phone] Med Refill Social History Tobacco Use Types Packs/Day Years Used Date Smoking Tobacco: Never Smokeless Tobacco: Never Alcohol Use Standard Drinks/Week Comments No 0 [...] Don't know 04/13/2018 8: 53 AM CDT documented as of this encounter Miscellaneous Notes * Telephone Encounter - Yaima Adames - 03/24/2023 5:58 AM CDT RX for 270 tabs/1 refill escribed 03/22/23 to [facility] documented in this encounter Plan of Treatment Not on file documented as of this encounter Visit Diagnoses Not on filedocumented in this encounter Additional Health Concerns Assessment Noted Time PHQ-9 Depression Total Score: 0 06/20/20 17 9: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 [address] [place] [address] [place] [phone] PCP - General Family Medicine 03/22/22 documented as of this encounter
--- OUTSIDE RECORDS SUMMARY | 2023-08-02 10:06 | XMS_ITS ---
Author Name Unknown Organization [facility] Address [address] [place] [address] Care Team Providers Care Greeter Name Role Phone Unavailable Unavailable Unavailable Surgery Details Not on file Complications Check Surgery Details section. Procedure Estimated Blood Loss Check Surgery Details section. Procedure Findings Check Surgery Details section. Procedure Specimens Taken Check Surgery Details section.
--- OUTSIDE RECORDS SUMMARY | 2023-08-02 10:06 | XMS_ITS | Encounter Summary ---
Author Name Unknown Organization [facility] Address [address] [place] [address] Care Team Providers Care Medical Charge Entry Specialist Name Role Phone Sienna Snider M.D. Primary Care Provider [phone] Reason for Visit * Reason Comments Med Refill Encounter Details Date Type Department Care Team (Late st Contact Info) Description 04/17/2023 Refill Department of Family Medicine, [facility], in [place], [place] [address] [place] [phone] Sienna Snider M.D. [address] [place] [phone] Med Refill Social History Tobacco Use Types [...] * Telephone Encounter - Yaima Adames - 04/17/2023 12:53 PM CDT Nurse review: Unable to forward request to provider; Discrepancy: Verification Required. MedicationDiscontinued. Primary Provider: Sienna Snider M.D. 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 [address] [place] [phone] PCP - General Family Medicine 03/22/22 documented as of this encounter
--- OUTSIDE RECORDS SUMMARY | 2023-08-02 10:06 | XMS_ITS | Encounter Summary ---
Author Name Unknown Organization [facility] Address [address] [place] [address] Care Team Providers Care Oracle Endeca Consultant Name Role Phone Sienna Snider M.D. Primary Care Provider Reason for Visit * Reason Comments Med Refill Encounter Details Date Type Department Care Team (Late st Contact Info) Description 03/23/2023 Refill Department of Family Medicine, [facility], in [place], [place] [address] [place] [phone] Olga Kirkpatrick M.D. 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 [address] [place] [phone] PCP - General Family Medicine 03/22/22 documented as of this encounter
--- OUTSIDE RECORDS SUMMARY | 2023-08-02 10:06 | XMS_ITS | Encounter Summary ---
Author Name Unknown Organization [facility] Address [address] [place] [address] Care Team Providers Care Noodle Catalyst Maker Name Role Phone Sienna Snider M.D. Primary Care Provider Reason for Visit * Reason Onset Date Comments Form Review 04/12/2023 [facility] - Encounter Details Date Type Department Care Team (Latest Contact Info) Description 04/12/2023 Clinical Communication Department of Family Medicine, [facility], in [place], [place] [address] [place] [phone] Sienna Snider M.D. [address] [place] [phone] Form Review ([facility] - ) Social History Tobacco Use Types Packs/Day Years [...] encounter Miscellaneous Notes * Telephone Encounter - Crissy Toscano - 04/12/2023 3:41 PM CDT Form completed by the provider. Faxed back and sent to scanning. * Telephone Encounter - Crissy Toscano - 04/12/2023 12:51 PM CDT Form was emailed to Dr. Snider for electronic review/signature. AUXILIARY POWER EQUIPMENT OPERATOR: [facility] PHONE NUMBER: [phone] INFO REQUESTED: Wheelchair adjustments, accessories, repairs and parts. INSTRUCTIONS: Fax information to [phone] documented in this encounter Plan of Treatment Not on file documented as of this encounter Visit Diagnoses Not on filedocumented in this encounter Additional Health Concerns Assessment Noted Time PHQ-9 Depression Total Score: 0 06/20/20 17 9:56 AM CAR OILER documented as of this encounter Care Teams Noodle Catalyst Maker Relationship Specialty Start Date End Date Sienna Snider M.D. [address] [place] [phone] PCP - General Family Medicine 03/22/22 documented as of this encounter
--- OUTSIDE RECORDS SUMMARY | 2023-08-02 10:06 | XMS_ITS | Referral Summary ---
Author Name Unknown Organization [facility] Address [address] [place] [address] Care Team Providers Care Habitat Management Coordinator Name Role Phone Sienna Snider M.D. Primary Care Provider [phone] Source Comments Patient records contain information from all sites at [facility]. For routine questions regarding patient records, call [phone] during business hours, M-F 8:00 AM - 5:00 PM Central Time. Record requests for emergency care only can be directed to [phone] at any time.[facility] Encounters Date Type Department Care Team Description 07/24/2023 Refill Department of [facility], [address] [phone] Sienna Snider M.D. Med Refill 06/13/2023 Clinical Communication Department of [facility], [address] [phone] Sienna Snider M.D. New Med Request (Alternate form of morphine requested by pharmacy) 05/26/2023 1:10 PM NAPHTHOL SOAPING MACHINE OPERATOR Immunization Department of [facility], [address] [address] 05/19/2023 Refill Department of [facility], in [address] [phone] Sienna Snider M.D. Med Refill 05/16/2023 Refill Department of [facility], [facility], [address] [place] [address] Gary Henry P.A.-C., P.A. Med Refill from Last 3 Months Allergies Active Allergy Reactions Criticality Noted Date [...] parenteral solution with morphine 50 mg/mL solution WEB SITE ADMIN cassette daily. 0 12/26/2022 Active DME Urological [...] migh t be different from the original. [facility] phone number [phone] fax # [phone] Problem Noted Date Diagnosed Date Pressure Injury [...] Of Vertebra Lumbosacral Region Overview: Followed by [facility] for sacral decubitus. 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 He has not had seizure in several years on current regimen. Immunizations Name Administration Dates Next Due H1N1 All Forms 06/25/2009 Influenza (IM) Preservative Free 05/24/2018 Influenza, Seasonal, Injectable 05/09/20 12,05/10/2011,05/19/2010,2007,05/08/2007 Influenza, Unspecified 05/12/2016,05/19/2015, SARS-COV-2 (COVID-19) - MODERNA 09/09/2020,08/12 SARS-COV-2 (COVID-19) - MODE RNA (12 YEARS AND OLDER) [id number] 05/26/2023 SARS-COV-2 (COVID-19) - PFIZ ER BIVALENT TS(12 YEARS OR OLDER) 12/30/2022 Td (Adult), adsorbed 10/29/2002 Tdap 12/30/2022,03/06/2012 influenza vaccine quad (FLUZONE/FLUARIX) (6 months and older)(PF) 05/26/2023,06/04/2022,07/12/2021,2020,05/29/2020,05/15/2019,05/24/2018,1 ,05/15/2013 Social History Tobacco Use Types Packs/Day Years [...] 03/22/2023 10:13 AM CDT Plan of Treatment Not on file Medical Devices Implanted Type Area Human Resources Trainer Device Identifier Shelf Expiration Date Model / Serial / Lot Clp Hrzn Ti 6 Clp Jose Cruz - [id number] Implanted:Qty: 1 on 05/22/2018 by Gary Porter M.D. at [facility] Hardware e.g. pins/screws/ rods N/A: [employer] [id number] / / Advance Directives For more information, please contact: [phone] Latest Code Status on File Code Status [...] Answer Comments Full Code: Discussed Care Teams Habitat Management Coordinator Relationship Specialty Start Date End Date Sienna Snider M.D. [address] [place] [address] YUNIER Root [phone] PCP - General Family Medicine 03/22/22
--- OUTSIDE RECORDS SUMMARY | 2023-08-02 10:06 | XMS_ITS | Encounter Summary ---
Author Name Unknown Organization [facility] Address [address] [place] [address] Care Team Providers Care Washhouse Hand Name Role Phone Sienna Snider M.D. Primary Care Provider Reason for Visit * Reason Comments Med Refill Encounter Details Date Type Department Care Team (Late st Contact Info) Description 05/19/2023 Refill Department of Family Medicine, [facility], in [place], [place] [address] [place] [phone] Sienna Snider M.D. [address] [place] [phone] Med Refill Social History Tobacco Use Types [...] encounter Miscellaneous Notes * Telephone Encounter - Tiffanie Montague L.P.N. - 05/22/2023 2:40 PM MOTORCYCLE MAKER Images from the original note were not included. From another encounter: RCYCLE MAKER * Telephone Encounter - Aaron Dumont - 05/19/2023 1:39 PM CDT Nurse review: Unable to forward request to provider; Discrepancy: Verification Required. MedicationDiscontinued. Primary Provider: Sienna Snider M.D. Requested Prescriptions Pending Prescriptions Disp Refills fluoride, sodium, (PREVIDENT) 1.1 % gel dental gel 100 g 3 Sig: APPLY ONE APPLICATION DENTAL ONCE DAILY - PEA SIZED AMOUNT documented in this encounter Plan of Treatment Not on file documented as of this encounter Visit Diagnoses Not on filedocumented in this encounter Additional Health Concerns Assessment Noted Time PHQ-9 Depression Total Score: 0 06/20/20 17 9:56 AM MOTORCYCLE MAKER documented as of this encounter Care Teams Washhouse Hand Relationship Specialty Start Date End Date Sienna Snider M.D. [address] [place] [phone] PCP - General Family Medicine 03/22/22 documented as of this encounter
--- OUTSIDE RECORDS SUMMARY | 2023-08-02 10:06 | XMS_ITS | Encounter Summary ---
Author Name Unknown Organization [facility] Address [address] [place] [address] Care Team Providers Care Rabbit Dresser Name Role Phone Sienna Snider M.D. Primary Care Provider Reason for Visit * Reason Onset Date Comments New Med Request 06/13/2023 Alternate form o f morphine requested by pharmacy Encounter Details Date Type Department Care Team (Latest Contact Info) Description 06/13/2023 Clinical Communication Department of Family Medicine, [facility], in [place], [place] [address] [place] [phone] Sienna Snider M.D. [address] [place] [phone] New Med Request (Alternate form of morphine requested by pharmacy) Social History Tobacco Use Types Packs/Day Years [...] encounter Miscellaneous Notes * Telephone Encounter - Crystal Phillips L.P.N. - 06/20/2023 3:31 PM TELEPHONE ORDER CLERK I spoke with [facility] and they do not have 5 mg or 10 mg tabs .They could get close to the same orderby order Morphine 15 mg and because this is scored they would split in half with the dose being 7.5mg 2 times daily I tried to pend this but the morphine 15 mg is extended release The pharmacist stated the pill is scored? PHONE ORDER CLERK documented in this encounter Plan of Treatment Not on file documented as of this encounter Visit Diagnoses Not on filedocumented in this encounter Additional Health Concerns Assessment Noted Time PHQ-9 Depression Total Score: 0 06/20/20 17 9:56 AM TELEPHONE ORDER CLERK documented as of this encounter Care Teams Rabbit Dresser Relationship Specialty Start Date End Date Sienna Snider M.D. [address] [place] [phone] PCP - General Family Medicine 03/22/22 documented as of this encounter
--- OUTSIDE RECORDS SUMMARY | 2023-08-02 10:06 | XMS_ITS | Encounter Summary ---
Author Name Unknown Organization [facility] Address [address] [place] [address] Care Team Providers Care Pool Finisher Name Role Phone Sienna Snider M.D. Primary Care Provider Reason for Visit * Reason Comments Med Refill Encounter Details Date Type Department Care Team (Late st Contact Info) Description 07/24/2023 Refill Department of Family Medicine, [facility], in [place], [place] [address] [place] [phone] Sienna Snider M.D. [address] [place] [phone] Med Refill Social History Tobacco Use Types [...] Total Score: 0 06/20/20 17 9:56 AM ROUTE SPECIALIST documented as of this encounter Care Teams Pool Finisher Relationship Specialty Start Date End Date Sienna Snider M.D. [address] [place] [address] [place] [phone] PCP - General Family Medicine 03/22/22 documented as of this encounter
--- OUTSIDE RECORDS SUMMARY | 2023-08-02 10:06 | XMS_ITS | Encounter Summary ---
Author Name Unknown Organization [facility] Address [address] [place] [address] Care Team Providers Care Diesel Truck Crane Operator Name Role Phone Sienna Snider M.D. Primary Care Provider [phone] Reason for Visit * Reason Comments Med Refill Encounter Details Date Type Department Care Team (Late st Contact Info) Description 05/16/2023 Refill Department of Family Medicine, [facility], in [place], [place] [address] [place] [phone] Gary Henry, Nichole., P.A. [address] [place] [phone] Med Refill Social History Tobacco Use Types [...] Total Score: 0 06/20/20 17 9:56 AM PLUMBING INSTALLER documented as of this encounter Care Teams Diesel Truck Crane Operator Relationship Specialty Start Date End Date Sienna Snider M.D. NPLizzette: [id number] [address] [place] [phone] PCP - General Family Medicine 03/22/22 documented as of this encounter
--- OUTSIDE RECORDS SUMMARY | 2023-08-02 10:06 | XMS_ITS | Encounter Summary ---
Author Name Unknown Organization [facility] Address [address] [place] [address] Care Team Providers Care Cap Cutter Name Role Phone Sienna Snider M.D. Primary Care Provider [phone] Reason for Visit * Appointment Request (Routine) - Closed Specialty Diagnoses / Procedures Referred By Salo de la cruz Referred To Contact Family Medicine Referral ID Status Reason Start Date Expiration Date Visits Re quested Visits Authorized [id number] Closed 05/16/2023 05/15/2024 1 1 Encounter Details Date Type Department Care Team (Late st Contact Info) Description 05/26/2023 1:10 PM CHARGE ENTRY Immunization Department of Family Medicine, [facility], in [place], [place] [address] [place] [address] Social History Tobacco Use Types Packs/Day Years [...] Total Score: 0 06/20/20 17 9:56 AM CHARGE ENTRY documented as of this encounter Care Teams Cap Cutter Relationship Specialty Start Date End Date Sienna Snider M.D. [address] [place] [address] [place] [phone] PCP - General Family Medicine 03/22/22 documented as of this encounter
--- OUTSIDE RECORDS SUMMARY | 2023-08-02 10:07 | XMS_ITS | Encounter Summary ---
Author Name Unknown Organization [facility] Address [address] [place] [address] Care Team Providers Care Tuft Machine Operator Name Role Phone Sienna Snider M.D. Primary Care Provider Reason for Visit * Reason Comments Seizures * Outpatient (Routine) - Closed Specialty Diagnoses / Procedures Referred By Salo de la cruz Referred To Contact Neurology Kong Aguilar M.D., M.P.H. [address] [phone] [facility] Referral ID Status Reason Start Date Expiration Date Visits Re quested Visits Authorized [id number] Closed 02/15/2022 02/15/2023 1 1 Encounter Details Date Type Department Care Team (Latest Contact Info) Description 03/22/2023 10:15 AM CDT Comprehensive Visit Department of Neurology in [place], [place] [address] [phone] Rohan Remy M.D. [address] [phone] Palsy Cerebral Quadriplegic Spastic (HCC); Seizure Disorder (HCC) Social History Tobacco Use Types Packs/Day Years [...] AM CDT documented as of this encounter Last Filed Vital Signs Vital Sign Reading Time Taken Comments Blood Pressure 127/73 03/22/2023 10:13 AM CDT Pulse 68 03/22/2023 10:13 AM CDT Temperature - - Respiratory Rate - - Oxygen Saturation - - Inhaled Oxygen Concentration - - Weight 56.7 kg (125 lb) 03/22/2023 10:13 AM CDT reported Height 170.2 cm (5' 7.01) 03/22/2023 10:13 AM C DT reported Body Mass Index 19.57 03/22/2023 10:13 AM CDT documented in this encounter Progress Notes * Rohan Remy M.D. - 03/22/2023 10:15 AM CDT SUBJECTIVE CHIEF COMPLAINT / REASON FOR VISIT Aditya Bearden is a 57 y.o. male who presents for follow-up of seizures . 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 Per review he was previously seen by Dr. Aguilar in February of 2022. It sounds as though his seizures have been well controlled her nearly 18 years on lamotrigine monotherapy. He takes lamotrigine 100 mg 3 times a day. REVIEW OF SYSTEMS REVIEW OF SYSTEMS OBJECTIVE PHYSICAL EXAM General: Male in his 50s, alert attentive. Vitals: Neuro: For details of the neurologic examination, please see the neurologic examination form. ASSESSMENT / PLAN #1 Palsy Cerebral Quadriplegic Spastic (HCC) #2 Seizure Disorder well controlled Overall his seizures continuous remain well controlled on lamotrigine monotherapy. It has been almost two decades since he has had a breakthrough seizure on that regimen. I discussed with them that at this point I do not necessarily think that they would need to routinely follow up with Neurology. L amotrigine should be able to be refilled through their primary care physician particularly given nosignificant dose adjustments, side effects and long period of seizure freedom. If there were concerns for breakthrough seizures or need for medication adjustments, then Neurologywould certainly be available in that setting. Advance Care Planning It inactive guardianship. documented in this encounter Plan of Treatment Not on file documented as of this encounter Visit Diagnoses Diagnosis Palsy Cerebral Quadriplegic Spastic (HCC) Seizure Disorder (HCC) documented in this encounter Additional Health Concerns Assessment Noted Time PHQ-9 Depression Total Score: 0 06/20/20 17 9:56 AM MATERIAL HANDLING CREW SUPERVISOR documented as of this encounter Care Teams Tuft Machine Operator Relationship Specialty Start Date End Date Sienna Snider M.D. [address] [place] [phone] PCP - General Family Medicine 03/22/22 documented as of this encounter
--- OUTSIDE RECORDS SUMMARY | 2023-08-02 10:07 | XMS_ITS | Encounter Summary ---
Author Name Unknown Organization [facility] Address [address] [place] [address] Care Team Providers Care Tutor Name Role Phone Sienna Snider M.D. Primary Care Provider [phone] Reason for Visit * Reason Onset Date Comments OTHER 12/07/2022 Encounter Details Date Type Department Care Team (Late st Contact Info) Description 12/07/2022 Clinical Communication Department of Family Medicine, [facility], in [place], [place] [address] [place] [phone] Sienna Snider M.D. [address] [place] [phone] OTHER Social History Tobacco Use Types Packs/Day Years [...] encounter Miscellaneous Notes * Telephone Encounter - Nisa Ho L.P.N. - 12/09/2022 8:22 AM CDT SUBJECTIVE CHIEF COMPLAINT / REASON FOR CALL OTHER PLAN The following information was provided: Notified Aure the script was sent in Information/Education: patient/caller able to teach back The following references were used: provider Carl documented in this encounter Plan of Treatment Not on file documented as of this encounter Visit Diagnoses Not on filedocumented in this encounter Additional Health Concerns Assessment Noted Time PHQ-9 Depression Total Score: 0 06/20/20 17 9:56 AM HOOP MACHINE OPERATOR documented as of this encounter Care Teams Tutor Relationship Specialty Start Date End Date Sienna Snider M.D. [address] [place] [phone] PCP - General Family Medicine 03/22/22 documented as of this encounter
--- OUTSIDE RECORDS SUMMARY | 2023-08-02 10:07 | XMS_ITS | Encounter Summary ---
Author Name Unknown Organization [facility] Address [address] [place] [address] Care Team Providers Care Laundry Marker Supervisor Name Role Phone Sienna Snider M.D. Primary Care Provider [phone] Encounter Details Date Type Department Care Team (Latest Contact Info) Description 03/11/2022 Intake [facility] Social History Tobacco Use Types Packs/Day Years [...] filedocumented in this encounter Additional Health Concerns Infection Onset Date Last Indicated Resolved Time COVID19 Pending 03/11/2022 03/11/2022 03/11/2022 9 :18 PM CDT Assessment Noted Time PHQ-9 Depression Total Score: 0 06/20/20 17 9:56 AM PET TRAINER documented as of this encounter Care Teams Laundry Marker Supervisor Relationship Specialty Start Date End Date Sienna Snider M.D. [address] [place] [phone] PCP - General Family Medicine 03/22/22 documented as of this encounter
--- OUTSIDE RECORDS SUMMARY | 2023-08-02 10:07 | XMS_ITS | Encounter Summary ---
Author Name Unknown Organization [facility] Address [address] [place] [address] Care Team Providers Care Inoculator Name Role Phone Sienna Snider M.D. Primary Care Provider Reason for Visit * Reason Comments Med Refill Encounter Details Date Type Department Care Team (Late st Contact Info) Description 02/22/2023 Refill Department of Family Medicine, [facility], in [place], [place] [address] [place] [phone] Sienna Snider M.D. [address] [place] [phone] Med Refill Social History Tobacco Use Types [...] encounter Miscellaneous Notes * Telephone Encounter - Aaron Dumont - 02/22/2023 11:05 AM CDT Nurse review: Unable to forward request to provider; Discrepancy: Verification Required. MedicationDiscontinued. Primary Provider: Sienna Snider M.D. Requested Prescriptions Pending Prescriptions Disp Refills fluoride, sodium, (SF) 1.1 % gel dental gel 100 mL 3 Sig: APPLY ONE APPLICATION DENTAL EVERY DAY -PEA SIZED AMOUNT documented in this encounter Plan of Treatment Not on file documented as of this encounter Visit Diagnoses Not on filedocumented in this encounter Additional Health Concerns Assessment Noted Time PHQ-9 Depression Total Score: 0 06/20/20 17 9:56 AM PRINCIPLE INDUSTRIAL HYGIENIST documented as of this encounter Care Teams Inoculator Relationship Specialty Start Date End Date Sienna Snider M.D. [address] [place] [phone] PCP - General Family Medicine 03/22/22 documented as of this encounter
--- OUTSIDE RECORDS SUMMARY | 2023-08-02 10:07 | XMS_ITS | Encounter Summary ---
Author Name Unknown Organization [facility] Address [address] [place] [address] Care Team Providers Care Student Development Coordinator Name Role Phone Sienna Snider M.D. Primary Care Provider Reason for Visit * Reason Onset Date Comments Form Review 09/15/2022 [facility] - [facility]It Encounter Details Date Type Department Care Team (Latest Contact Info) Description 09/15/2022 Clinical Communication Department of Family Medicine, [facility], in [place], [place] [address] [place] [phone] Olga Beltran M.D. [address], [place] [phone] Form Review ([facility]It) Social History Tobacco Use Types Packs/Day Years [...] encounter Miscellaneous Notes * Telephone Encounter - Lu Harding - 10/03/2022 8:52 AM CDT Form completed and faxed to listed facility[facility] * Telephone Encounter - Lu Harding - 09/15/2022 11:24 AM CST Form was emailed to Olga Correa for electronic review/signature. SLAG MIXER: [facility] [place] PHONE NUMBER: [phone] INFO REQUESTED: Thick-It INSTRUCTIONS: Fax information to [phone] documented in this encounter Plan of Treatment Not on file documented as of this encounter Visit Diagnoses Not on filedocumented in this encounter Additional Health Concerns Assessment Noted Time PHQ-9 Depression Total Score: 0 06/20/20 17 9:56 AM SCREEN PRINTER documented as of this encounter Care Teams Student Development Coordinator Relationship Specialty Start Date End Date Sienna Snider M.D. [address] [place] [phone] PCP - General Family Medicine 03/22/22 documented as of this encounter
--- OUTSIDE RECORDS SUMMARY | 2023-08-02 10:07 | XMS_ITS | Clinical Summary ---
Author Name Unknown Organization [facility] Address [address] Care Team Providers Care Supervisor Metal Furniture Fabrication Name Role Phone Olga Kirkpatrick MD Unavailable Ivis Carey Unavailable Unavailable Pcp, No Primary Care Provider Unavailabl e Allergies Active Allergy Reactions Criticality Noted Date Comments Sulfamethoxazole-Trimethopri m *Unknown 11/20/2017 Erythromycin *Unknown 03/31/2014 Terfenadine *Unknown 01/20/2018 Other reaction(s): Other (see comments) Sulfa (Sulfonamide Antibiotics) *Unknown 03/28/2014 Medications Medication Sig Dispensed Refills Start Date End Date Status lamoTRIgine (LAMICTAL) 100 mg tablet Take 100 mg by mouth 3 times daily. 0 Active docusate (COLACE) 100 mg capsule Take 100 mg by mouth 3 times daily. 0 Active mirtazapine (REMERON) 15 mg tablet Take 15 mg by mouth at bedtime. 0 Active sodium phosphates (FLEETS) enema Insert 1 Enema rectally one time if needed (every 3rd day if no BM). follow package directions 0 Active LORazepam (ATIVAN) 1 mg tablet Take 1 mg by mouth one time if needed. 1 mg prn 90 minutes prior to dental appointments 0 Active glycopyrrolate (ROBINUL) 1 mg tablet Take 1 mg by mouth 3 times daily. 0 Active polyethylene glycol (MIRALAX; GLYCOLAX) 17 g powder for solution Take 1 Packet by mouth once daily. 0 Active alendronate (FOSAMAX) 70 mg tablet Take 70 mg by mouth once a week in the morning. Wednesdays. Take on empty stomach with full glass of water. Do not lie down for 1 hr. 0 Active sodium fluoride dental 1.1 % gel Cana a pea-size amount on teeth for 60 seconds at bedtime. Do not eat, drink, or rinse for 30 minutes following 0 Active chlorhexidine (PERIDEX) 0.12 % solution Apply 1oz for 60 seconds to teeth and gums thoroughly with a toothbrush following brushing every morning. Do not eat, drink, rinse for 30 minutes following 0 Active carbamide peroxide (DEBROX) 6.5 % otic solution Place 5 Drops into both ears. First 3 days of every month at bedtime 0 Active ibuprofen (ADVIL) 200 mg tablet Take 400 mg by mouth 4 times daily if needed (200-400 mg q4 hours prn). 0 Active milk of magnesia (MOM) (400 mg in 5 mL) Take 30 mL by mouth. 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 30 tablet 0 03/14/2019 Active Surgical ShoeIndications:Be nign neoplasm of skin of left foot For home use. 1 unit 0 03/14/2019 Active Active Problems Problem Noted Date Diagnosed Date Hypophosphatemia 05/23/2018 Primary hyperparathyroidism 01/23/2018 Bronchitis 01/22/2018 Hypercalcemia 01/20/2018 Dehydration with hypernatremia 01/20/2018 WERO (acute kidney injury) 01/20/2018 Acute renal failure with tubular necrosis 2017 Sepsis due to urinary tract infection 12/24/2017 Hypercalcemia 12/24/2017 Cerebral palsy Seizures Overview: last documented seizure 08/30/2004 Spastic quadriplegia Development delay Constipation Osteopenia Overview: hips Resolved Problems Problem Noted Date Diagnosed Date Resolved Date Elevated serum creatinine 12/24/2017 Seizures 2017 Overview: last documented seizure 08/30/2004 Social History Tobacco Use Types Packs/Day Years Used Date Smoking Tobacco: Never Smokeless Tobacco: Never Alcohol Use Standard Drinks/Week Comments No 0 (1 standard drink = 0.6 oz pur e alcohol) Sex and Gender Information Value Date Recorded Sex Assigned at Not on file Gender Identity Not on file Sexual Orientation Not on file Obstetrics History Last Filed Vital Signs Vital Sign Reading Time Taken Comments Blood Pressure 138/81 04/28/2023 11:27 AM CDT Pulse 95 04/28/2023 11:45 AM CDT Temperature 38.1 ??C (100.5 ??F) 04/28/2023 10:03 AM CDT Respiratory Rate 20 04/28/2023 10:03 AM CDT Oxygen Saturation 91% 04/28/2023 11:45 AM CDT Inhaled Oxygen Concentration - - Weight 54.4 kg (120 lb) 04/28/2023 10:03 AM CDT Height 170.2 cm (5' 7) 04/28/2023 10:03 AM CDT Body Mass Index 18.79 04/28/2023 10:03 AM CDT Plan of Treatment Health Maintenance Due Date Last Done Comments Tdap 12/24/1978 Depression screening for age 12+ 1979 HIV for age 15-65 12/24/1982 Hepatitis C screening for ag e 18-79 12/24/1985 Tetanus booster 1987 Colonoscopy through age 75 12/24/2012 Lipids for age 45-75 12/24/2012 Zoster (shingles) series for age 50+ (1 of 2) 12/24/2017 BMI (ht and wt on same day) for age 18+ 02/22/2019 02/22/2018 COVID-19 vaccine series (2022- season) 2023 12/30/2022 Influenza for age 50-64 03/17/2023 Pneumococcal series for age 6-64 Aged Out No longer eligible based on patient's age to complete this topic Advance Directives Documents on File Type Date Recorded Patient Family Partner Ashlee LOREDO 03/04/2023 2:02 PM Latest Code Status on File Code Status Date Activated Date Inactivated Comments Full Code 03/14/2019 9:34 AM 03/14/2019 3:29 PM Code Status History Code Status Date Activated Date Inactivated Comments Full Code 03/14/2019 9:33 AM 03/14/2019 9:34 AM Full Code 01/20/2018 1:42 PM 01/23/2018 3:46 PM Question Answer Comments Code Status Discussion: Not Discussed Full Code 12/26/2017 8:25 AM 12/27/2017 3:18 PM Full Code 03/31/2014 9:50 AM 03/31/2014 1:05 PM Care Teams Supervisor Metal Furniture Fabrication Relationship Specialty Start Date End Date Pcp, No . PCP - General 03/04/23 FruehbroOlga Crawford MD Family Practice 03/26/14 Ivis Carey Cancer Nurse Coordinator Registered Nurse 02/13/18
--- OUTSIDE RECORDS SUMMARY | 2023-08-02 10:07 | XMS_ITS | Referral Summary ---
Author Name Unknown Organization [facility] Address [address] [place] [address] Care Team Providers Care Commissary Clerk Name Role Phone SilvinorovertoOlga rider Primary Care Provider Allergies Active Allergy Reactions Criticality Noted Date Comments Erythromycin 12/16/2020 Medications Medication Sig Dispensed Refills Start Date End Date Status acetaminophen (TYLENOL) 325 MG tablet Take 325-650 mg by mouth every 6 hours as needed for mild pain 0 Active Calcium Carbonate-Vitamin D3 (CALCIUM 600+D3) 600-400 MG-UNIT TABS 0 Acti ve chlorhexidine (CHLORHEXIDINE) 0.12 % solution Swish and spit 15 mLs in mouth daily 0 Active glycopyrrolate (ROBINUL) 1 MG tablet Take 1 mg by mouth 3 times daily 0 Active lamoTRIgine (LAMICTAL) 100 MG tablet Take 100 mg by mouth 3 times daily 0 Active LORazepam (ATIVAN) 1 MG tablet Take 1 mg by mouth as needed for anxiety 0 Active mirtazapine (REMERON) 15 MG tablet Take 15 mg by mouth At Bedtime 0 Active docusate sodium (COLACE) 100 MG tablet Take 100 mg by mouth daily 0 Active polyethylene glycol (MIRALAX) 17 g packet Take 1 packet by mouth daily 0 Active Active Problems Problem Noted Date Diagnosed Date Pain, dental 12/18/2020 Social History Tobacco Use Types Packs/Day Years Used Date Smoking Tobacco: Never Smokeless Tobacco: Never Adolescent Education Answer Date Record ed Getting School Help Needed Not on file 04/08 Sex and Gender Information Value Date Recorded Sex Assigned at Not on file Gender Identity Not on file Sexual Orientation Not on file Last Filed Vital Signs Vital Sign Reading Time Taken Comments Blood Pressure 131/81 12/18/2020 11:50 AM CDT Pulse 90 12/18/2020 11:50 AM CDT Temperature 36.5 ??C (97.7 ??F) 12/18/2020 12:00 PM C DT Respiratory Rate 16 12/18/2020 12:00 PM CDT Oxygen Saturation 94% 12/18/2020 12:00 PM CDT Inhaled Oxygen Concentration - - Weight 63.3 kg (139 lb 8.8 oz) 12/18/2020 6:40 A M CDT Height 170.2 cm (5' 7) 12/18/2020 6:40 AM CDT Body Mass Index 21.86 12/18/2020 6:40 AM CDT Plan of Treatment Not on file Advance Directives For more information, please contact: [phone] Documents on File Type Date Recorded Patient Grinder Operator External Tool Expl anation Advance Directives and Living Will 12/16/2020 Ivis ([place] GUARDIAN- MAY ACT INDEPENDENTLY) Mike ([place] GUARDIAN- MAY ACT INDEPENDENTLY) Suleiman Legal Guardianship 10-23-2008 Advance Directives and Living Will 11/09/2020 Legal Guardianship 01-13-1986 Care Teams Commissary Clerk Relationship Specialty Start Date End Date Olga Kidd [address] [place] [phone] PCP - General Family Medicine 12/04/20
--- OUTSIDE RECORDS SUMMARY | 2023-08-02 10:07 | XMS_ITS | Encounter Summary ---
Author Name Unknown Organization [facility] Address [address] [place] [address] Care Team Providers Care Vascular Nurse Name Role Phone Sienna Snider M.D. Primary Care Provider Reason for Referral * Outpatient (Routine) - Closed Specialty Diagnoses / Procedures Referred By Salo de la cruz Referred To Contact Neurology Diagnoses Palsy Cerebral Quadriplegic Spastic (HCC) Seizure Disorder (HCC) Sienna Snider M.D. 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 [address] [place] [address] Referral ID Status Reason Start Date Expiration Date V isits Requested Visits Authorized [id number] Authorized 12/30/2022 12/30/2023 1 1 Reason for Visit * Reason Comments Annual Exam Physical. Discuss pe nding hospice-discharge. * Appointment Request (Routine) - Closed Specialty Diagnoses / Procedures Referred By Salo de la cruz Referred To Contact Family Medicine Referral ID Status Reason Start Date Expiration Date Visits Re quested Visits Authorized [id number] Closed 12/26/2022 12/26/2023 1 1 Encounter Details Date Type Department Care Team (Latest Contact Info) Description 12/30/2022 10:00 AM CDT Comprehensive Visit Department of Family Medicine, [facility], in [place], [place] [address] [facility] [place] [address] Sienna Snider M.D. 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); Osteomyelitis Of Vertebra Lumbosacral Region (HCC); Palsy Cerebral Quadriplegic Spastic (HCC); Seizure Disorder (HCC); Hyperparathyroidism Primary (HCC); Mobility Limited; Incontinence Urinary; Need Vaccine Immunization Tetanus And Diphtheria Toxoids And Pertussis Social History Tobacco Use Types Packs/Day Years Used Date Smoking Tobacco: Never Smokeless Tobacco: Never Tobacco Cessation:Counseling Given: Yes Alcohol Use Standard Drinks/Week Comments No 0 [...] Sign Reading Time Taken Comments Blood Pressure 124/71 12/30/2022 9:[address] rage of 3 Pulse 64 12/30/2022 9:55 AM CDT Temperature 36.1 ??C (97 ??F) 12/30/2022 9:55 AM CDT Respiratory Rate 24 12/30/2022 9:55 AM CDT Oxygen Saturation - - Inhaled Oxygen Concentration - - Weight 56.7 kg (125 lb) 12/30/2022 9:55 AM CDT Height 170.2 cm (5' 7.01) 12/30/2022 9:55 AM CD T Body Mass Index 19.57 12/30/2022 9:55 AM CDT documented in this encounter H&P Notes * Sienna Snider M.D. - 12/30/2022 10:00 AM CDT SUBJECTIVE CHIEF COMPLAINT / REASON FOR VISIT Annual Exam (Physical. Discuss pending hospice-discharge.) HISTORY OF PRESENT ILLNESS Aditya Bearden is a 57 y.o. male with a past medical history of cerebral palsy with spastic quadriplegia, seizure disorder, hyperparathyroidism (parathyroidectomy 2010), osteoporosis, and developmental delay, who is nonverbal at baseline who presents today for Annual Exam. Patient brought today to the clinic with the staff. Staff would like DNR DNI forms to be signed. Requested prescription for air mattress, gloves and urology supplies. Patient was hospitalized in February for osteomyelitis secondary to pressure ulcer. Patient was admitted to [facility] as he was receiving IV antibiotics. patient was also referred to hospice. Staff stated that he will be discharged once a day. She wouldlike to discontinue orders including Ativan, nystatin, Haldol and clonazepam. She stated that they have been changing his wound dressing twice daily. She stated that the wound in his sacral area, measures 2 mm deep and has not tunnel aboard measures 4 mm. He is off antibioticsnow. She also requested prescription for morphine to help with dressing change. REVIEW OF SYSTEMS REVIEW OF SYSTEMS Pertinent positive ROS are listed above in HPI. ALLERGIES Erythromycin, Sulfa (sulfonamide antibiotics), and Terfenadine MEDICATIONS Current Outpatient Medications: acetaminophen (TYLENOL) 325 mg tablet, Take 650 mg by mouth every 6 (six) hours as needed for pain., Disp: , Rfl: docusate sodium (COLACE) 100 mg capsule, TAKE ONE CAPSULE BY MOUTH THREE TIMES A DAY, Disp: 270 capsule, Rfl: 3 Ear Drops, carbamide peroxide, 6.5 % otic solution, INSTILL FIVE DROPS IN BOTH EARS THE 1ST THREE DAYS OF EVERY MONTH AT BEDTIME DIRECTED (Patient taking differently: as needed.), Disp: 30 mL, Rfl: 3 food supplemt, lactose-reduced (Ensure) liquid, Take 1 Can by mouth 2 (two) times a day., Disp: 60 Can, Rfl: 11 lamoTRIgine (LaMICtaL) 100 mg tablet, Take 1 tablet (100 mg total) by mouth 3 (three) times a day.,Disp: 270 tablet, Rfl: 3 NaCl 0.9% parenteral solution with morphine 50 mg/mL solution BOLT LABELER cassette, daily., Disp: , Rfl: polyethylene glycol (GLYCOLAX) 17 gram/dose oral powder, Take 17 g by mouth daily. , Disp: , Rfl: sodium phosphates (Enema Disposable) 19-7 gram/118 mL enema, FOR EVERY THRID DAY IF NO BM, NEEDED FOR CONSTIPATION. FOLLOW PACKAGE DIRECTIONS, Disp: 399 mL, Rfl: 3 starch, thickening, (Thick-It) powder, For use to obtain nectar thick liquids, Disp: 1020 g, Rfl: 11 triamcinolone (KENALOG) 0.1 % cream, APPLY TWICE DAILY TO RASH UNTIL CLEAR., Disp: , Rfl: DME Urological supplies, DME Order, Disp: 1 Unspecified, Rfl: 3 morphine 10 mg/5 mL solution, Administer 2.5 mL (5 mg total) via gastric tube 2 (two) times a day as needed for pain Indication: Chronic Pain/Nonacute Pain., Disp: 150 mL, Rfl: 0 nystatin (NYSTOP) 100,000 unit/gram powder, Apply 1 application topically 3 (three) times a day. (Patient not taking: Reported on 12/30/2022), Disp: 15 g, Rfl: 0 PAST MEDICAL HISTORY Past Medical History: Diagnosis Date Depression Anxiety Developmental Delay Mental Hypercalcemia Palsy Cerebral (HCC) Seizure Disorder (HCC) rare seizures [facility]ney PAST SURGICAL HISTORY Past Surgical History: Procedure Laterality Date DENTAL SURGERY 2010 hindu multiple procedures PARATHYROIDECTOMY - EXPLORATION CENTRAL NECK N/A 05/22/2018 Procedure: PARATHYROIDECTOMY,Right superior parathyroidectomy; Surgeon: Gary Porter M.D.; Location: [facility] OR FAMILY HISTORY Family History Problem Relation Age of Onset Depression Mother Hyperlipidemia Mother Hypertension Mother Breast cancer Mother Osteoarthritis Father Osteoarthritis Sister Depression Sister SOCIAL HISTORY Social History Socioeconomic History Marital status: Single Tobacco Use Smoking status: Never Smokeless tobacco: Never Vaping Use Vaping Use: never used Substance and Sexual Activity Alcohol use: No Drug use: No Sexual activity: Never Social History Narrative He lives at [place] and attends the [employer]. His guardians are his parents and brother, Cale and pillowcase folder is currently Latrice Vasquez through [facility]. Parents contact [phone] and Reed [phone]. OBJECTIVE BP 124/71 (BP Location: Left arm, Patient Position: Sitting, Cuff Size: Regular) Comment: average of 3 Pulse 64 Temp 36.1 ??C (Temporal) Resp 24 Ht 170.2 cm Wt 56.7 kg BMI 19.57 kg/m?? PHYSICAL EXAMINATION General: Alert, pleasant male appearing in no acute distress. Neuro: Oriented x 3, responds appropriately to questions and follows commands without difficulty. Pupils equal and reactive to light. Cranial nerves II-XII grossly intact. EOMs intact. Muscle tone and strength normal and equal bilaterally without weakness or involuntary movements. Sensation intact to light touch in all extremities. Head: Normocephalic, atraumatic. Eyes: Sclerae clear without injection, conjunctivae without drainage, erythema or matting. MACHO. Ears: Normal auditory canals and external ears. Tympanic memebranes pearly bilaterally. Nontender. Oropharynx: Moist and pink without exudate. Normal buccal mucosa. Dental hygiene adequate. Neck: Supple without lymphadenopathy. No thyromegaly or carotid bruits. Heart: Normal S1, S2 with regular rate and rhythm. No murmurs, rubs, or clicks heard. Lungs: Clear to auscultation bilaterally posteriorly without rhonchi, wheezes, or crackles. No cough on exam today. Respirations are easy and unlabored. Abdomen: Soft, nondistended, nontender to palpation without palpable masses or organomegaly. Genitourinary: deferred Musculoskeletal: Back is straight and non-tender, full range of motion of upper and lower extremities. Feet: Good pedal pulses, no lesions, nail hygiene good. Extremities: No upper or lower extremity edema or cyanosis. Skin: Warm and dry without rashes on the visible areas. Psychiatric: Appropriate mood and affect. Makes good eye contact. Dressed appropriately. Contributes meaningfully to conversation. 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 4 ([facility]) - External referral ancillary (non-[place]) #3 Osteomyelitis Of Vertebra Lumbosacral Region ([facility]) #4 Palsy Cerebral Quadriplegic Spastic (HCC) - DME Support Surfaces; #5 Seizure Disorder (HCC) #6 Hyperparathyroidism Primary (HCC) #7 Mobility Limited #8 Incontinence Urinary - DME Urological supplies; DME Order, ERX DME #9 Need Vaccine Immunization Tetanus And Diphtheria Toxoids And Pertussis - Tdap: [id number] pertussis vaccine (7 years and older) Other orders - DME General supplies; - Neurology - General consult (clinic); Future; Expected date: 12/30/2022 - SARS-COV-2 (COVID-19) - PFIZER BIVALENT TS (12 years or older) - morphine 10 mg/5 mL solution; Administer 2.5 mL (5 mg total) via gastric tube 2 (two) times a dayas needed for pain Indication: Chronic Pain/Nonacute Pain., Starting Mon12/30/2022, Normal DNR and DNI form signed. Medication reviewed. Family refused any blood work or preventive care except for immunization. Familial also declined referral to psych and Endocrinology. Staff requested referral to Neurology for his routine follow-up. No recent seizure reported. Prescription morphine sent to the pharmacy. Sienna Snider M.D. 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 [address] [place] [phone] PCP - General Family Medicine 03/22/22 documented as of this encounter
--- OUTSIDE RECORDS SUMMARY | 2023-08-02 10:07 | XMS_ITS | Encounter Summary ---
Author Name Unknown Organization [facility] Address [address] [place] [address]. [place] [address] Care Team Providers Care Drywall Taper Helper Name Role Phone Olga Kidd Primary Care Provider Encounter Details Date Type Department Care Team (Late st Contact Info) Description 12/16/2020 External Order Results [facility] [address] [place] [address] Outside, Provider Social History Tobacco Use Types Packs/Day Years Used Date Smoking Tobacco: Never Smokeless Tobacco: Never Sex and Gender Information Value Date Recorded Sex Assigned at Not on file Gender Identity Not on file Sexual Orientation Not on file COVID-19 Exposure Response Date Recorded In the last month, have you been in contact with someone who was confirmed or suspected to have Coronavirus / COVID-19? No / Unsure 12/18/2020 6:11 AM CDT documented as of this encounter Plan of Treatment Not on file documented as of this encounter Procedures Procedure Name Priority Date/Time Associated Diagnosis Comments COVID-19 VIRUS (CORONAVIRUS) BY PCR (EXTERNAL RESULT) Routine 12/16/2020 11:00 AM CDT documented in this encounter Results * COVID-19 Virus (Coronavirus) by PCR (External Result) (12/16/2020 11:00 AM CDT) COVID-19 Virus by PCR (External Result) Undetected Undetected [facility] 12/16/2020 11:0 0 AM CDT Narrative DEMOND PFT - 12/20/2020 8:00 AM CDT Verified by Tito Gonzalez on 12/20/2020. Patient Reported [facility] PFT [facility] [address] [place] [address], [facility] documented in this encounter Visit Diagnoses Not on filedocumented in this encounter Care Teams Drywall Taper Helper Relationship Specialty Start Date End Date Olga Kidd [address] [place] [phone] PCP - General Family Medicine 12/04/20 documented as of this encounter
--- OUTSIDE RECORDS SUMMARY | 2023-08-02 10:07 | XMS_ITS | Encounter Summary ---
Author Name Unknown Organization [facility] Address [address] [place] [address] Care Team Providers Care Women'S Apparel Salesperson Name Role Phone Sienna Snider M.D. Primary Care Provider [phone] Reason for Visit * Reason Onset Date Comments Form Review 01/16/2023 [facility] [employer] ( Order [id number], [id number], [id number] Encounter Details Date Type Department Care Team (Latest Contact Info) Description 01/16/2023 Clinical Communication Department of Family Medicine, [facility], in [place], [place] [address] [place] [phone] Sienna Snider M.D. [address] [place] [phone] Form Review ([employer] [employer] ( Order [id number], [id number], [id number]) Social History Tobacco Use Types Packs/Day Years [...] encounter Miscellaneous Notes * Telephone Encounter - Judy Pradhan - 01/16/2023 4:28 PM CDT Received back completed form. Form faxed back to the listed facility. Scanned into [facility] * Telephone Encounter - Judy Pradhan - 01/16/2023 2:50 PM CDT Form was emailed to Sienan Snider MD for electronic review/signature. SCROLL SHEAR OPERATOR: [facility] PHONE NUMBER: [phone] INFO REQUESTED: Order [id number], [id number], [id number] INSTRUCTIONS: Fax information to [phone] documented in this encounter Plan of Treatment Not on file documented as of this encounter Visit Diagnoses Not on filedocumented in this encounter Additional Health Concerns Assessment Noted Time PHQ-9 Depression Total Score: 0 06/20/20 17 9:56 AM PRODUCT SAFETY EXPERT documented as of this encounter Care Teams Women'S Apparel Salesperson Relationship Specialty Start Date End Date Sienna Snider M.D. [address] [place] [address] [place] [address] PCP - General Family Medicine 03/22/22 documented as of this encounter
--- OUTSIDE RECORDS SUMMARY | 2023-08-02 10:07 | XMS_ITS | Encounter Summary ---
Author Name Unknown Organization [facility] Address [address] [place] [address] Care Team Providers Care Research Physiologist Name Role Phone Sienna Snider M.D. Primary Care Provider [phone] Reason for Visit * Reason Comments Rash Skin sores/blisters per hospice nurse that she wanted checked by the doctor. * Appointment Request (Routine) - Closed Specialty Diagnoses / Procedures Referred By Salo de la cruz Referred To Contact Family Medicine Referral ID Status Reason Start Date Expiration Date Visits Re quested Visits Authorized [id number] Closed 11/08/2022 11/08/2023 1 1 Encounter Details Date Type Department Care Team (Late st Contact Info) Description 11/08/2022 3:00 PM CDT Office Visit Department of Family Medicine, [facility], in [place], [place] [address] [phone] Tone Treadwell M.D. [address] [place] [phone] Blister Hand Initial Left (Primary Dx) Social History Tobacco Use Types Packs/Day Years [...] Sign Reading Time Taken Comments Blood Pressure 119/78 11/08/2022 2:52 PM CDT Pulse 85 11/08/2022 2:52 PM CDT Temperature 36.8 ??C (98.3 ??F) 11/08/2022 2:52 PM CD T Respiratory Rate - - Oxygen Saturation - - Inhaled Oxygen Concentration - - Weight - - Height - - Body Mass Index - - documented in this encounter Progress Notes * Tone Treadwell M.D. - 11/08/2022 3:00 PM CDT SUBJECTIVE CHIEF COMPLAINT/REASON FOR VISIT Aditya Bearden is a 56 y.o. male that presents with blisters noted on both hands and feet. Caregiver notes that he has been a lot less active than usual, as they had to stop his nzryn-eq-kytvwf/PT therapy recently. They can resume that if needed. No injuries or other concerns. CURRENT MEDICATIONS Current Outpatient Medications: acetaminophen (TYLENOL) 325 mg tablet, Take 650 mg by mouth every 6 (six) hours as needed for pain., Disp: , Rfl: docusate sodium (COLACE) 100 mg capsule, TAKE ONE CAPSULE BY MOUTH THREE TIMES A DAY, Disp: 270 capsule, Rfl: 3 food supplemt, lactose-reduced (Ensure) liquid, Take 1 Can by mouth 2 (two) times a day., Disp: 60 Can, Rfl: 11 lamoTRIgine (LaMICtaL) 100 mg tablet, Take 1 tablet (100 mg total) by mouth 3 (three) times a day.,Disp: 270 tablet, Rfl: 3 LORazepam (ATIVAN) 1 mg tablet, TAKE 1 TABLET BY MOUTH 90 MINUTES PRIOR TO DENTAL APPOINTMENT NEEDED FOR ANXIETY, Disp: 1 tablet, Rfl: 0 nystatin (NYSTOP) 100,000 unit/gram powder, Apply 1 application topically 3 (three) times a day., Disp: 15 g, Rfl: 0 polyethylene glycol (GLYCOLAX) 17 gram/dose oral powder, Take 17 g by mouth daily. , Disp: , Rfl: cephalexin (KEFLEX) 500 mg capsule, Take 1 capsule (500 mg total) by mouth 2 (two) times a day., Disp: 14 capsule, Rfl: 0 Ear Drops, carbamide peroxide, 6.5 % otic solution, INSTILL FIVE DROPS IN BOTH EARS THE 1ST THREE DAYS OF EVERY MONTH AT BEDTIME DIRECTED (Patient taking differently: as needed.), Disp: 30 mL, Rfl: 3 mirtazapine (REMERON) 15 mg tablet, Remeron 15 mg oral tablet at bedtime, Disp: , Rfl: sodium phosphates (Enema Disposable) 19-7 gram/118 mL enema, FOR EVERY THRID DAY IF NO BM, NEEDED FOR CONSTIPATION. FOLLOW PACKAGE DIRECTIONS, Disp: 399 mL, Rfl: 3 starch, thickening, (Thick-It) powder, For use to obtain nectar thick liquids, Disp: 1020 g, Rfl: 11 ALLERGIES/CONTRAINDICATIONS Allergies Allergen Reactions Erythromycin Other (see comments) Sulfa (Sulfonamide Antibiotics) Other (see comments) Reaction not recorded Terfenadine Other (see comments) OBJECTIVE Vitals: 11/08/22 1452 BP: 119/78 Pulse: 85 Temp: 36.8 ??C PHYSICAL EXAMINATION General Appearance: No acute distress. Nonverbal. Extremities: He has significant contractures at the wrists and fingers. There are some serous fluidcontaining blisters on the fingers in a couple of different spots on both hands. No signs of infection or other concerns. The blisters on the feet were reportedly very similar per caregiver. These were not specifically examined today. ASSESSMENT / PLAN Serous blisters secondary to Contractures and decreased activity media to increased fluid pressure in the soft tissues of the hands and feet. Recommend they restart PT and sutsu-zj-giunec exercises and activity. Other Conservative measures such as elevation of the hands and feet are reviewed. Prescription sent to the pharmacy for Keflex in case any of these areas for secondary infection due to blister breakdown. All questions are discussed and answered. Caregiver voices good understanding and agreement with our plan. Follow-up with primary care if not improving as expected or otherwise as needed. documented in this encounter Plan of Treatment Not on file documented as of this encounter Visit Diagnoses Diagnosis Blister Hand Initial Left- Primary documented in this encounter Additional Health Concerns Assessment Noted Time PHQ-9 Depression Total Score: 0 06/20/20 17 9:56 AM COD CLERK documented as of this encounter Care Teams Research Physiologist Relationship Specialty Start Date End Date Sienna Snider M.D. NPLizzette: [phone] [address] [place] [phone] PCP - General Family Medicine 03/22/22 documented as of this encounter
--- OUTSIDE RECORDS SUMMARY | 2023-08-02 10:07 | XMS_ITS | Clinical Summary ---
Author Name Unknown Organization [facility] Address [address] [place] [address] Care Team Providers Care Rouge Sifter And Miller Name Role Phone MichelaroyaOlga alford Primary Care Provider Allergies Active Allergy Reactions [...] 12/18/2020 6:40 AM CDT Plan of Treatment Health Maintenance Due Date Last Done Comments ANNUAL REVIEW OF HM ORDERS 1967 CT COLONOGRAPHY 1967 FIT 1967 FLEX SIG 1967 HEPATITIS B IMMUNIZATION (1 of 3 - 3-dose series) 1967 sDNA (Cologuard) 1965 COVID-19 Vaccine (#1) 06/25/1968 COLONOSCOPY 12/24/1977 COLORECTAL CANCER SCREENING 12/24/1977 HIV SCREENING 12/24/1982 HEPATITIS C SCREENING 12/24/1985 MEDICARE ANNUAL WELLNESS VISIT 12/24/1985 DTAP/TDAP/TD IMMUNIZATION (1 - Tdap) 12/24/1992 LIPID 12/24/2002 ZOSTER IMMUNIZATION (1 of 2) 12/24/2017 INFLUENZA VACCINE (#1) 2023 PHQ-2 (once per calendar year) 2023 ADVANCE CARE PLANNING 12/16/2025 12/16/2020 , 11/09/2020 HPV IMMUNIZATION Aged Out No longer e ligible based on patient's age to complete this topic IPV IMMUNIZATION Aged Out No longer e ligible based on patient's age to complete this topic MENINGITIS IMMUNIZATION Aged Out No l onger eligible based on patient's age to complete this topic Pneumococcal Vaccine: Pediatrics (0 to 5 Years) and At-Risk Patients (6 to 64 Years) Aged Out No longer eligible b ased on patient's age to complete this topic RSV MONOCLONAL ANTIBODY Aged Out No l onger eligible based on patient's age to complete this topic Advance Directives For more information, please contact: [phone] Documents on File Type Date Recorded Patient Strawhat Blocking Operator Expl anation Advance Directives and Living Will 12/16/2020 Ivis ([place] GUARDIAN- MAY ACT INDEPENDENTLY) Mike ([place] GUARDIAN- MAY ACT INDEPENDENTLY) Suleiman Legal Guardianship 10-23-2008 Advance Directives and Living Will 11/09/2020 Legal Guardianship 01-13-1986 Care Teams Rouge Sifter And Miller Relationship Specialty Start Date End Date Olga Kidd [address] [place] [phone] PCP - General Family Medicine 12/04/20
--- OUTSIDE RECORDS SUMMARY | 2023-08-02 10:07 | XMS_ITS | Encounter Summary ---
Author Name Unknown Organization [facility] Address [address] [place] [address] Care Team Providers Care Door Core Assembler Name Role Phone Sienna Snider M.D. Primary Care Provider [phone] Reason for Visit * Reason Onset Date Comments Printed Rx for New Brooke Sling 02/13/2023 Encounter Details Date Type Department Care Team (Latest Contact Info) Description 02/13/2023 Clinical Communication Department of Family Medicine, [facility], in [place], [place] [address] [place] [phone] Sienna Snider M.D. [address] [place] [phone] Printed Rx for New Brooke Sling Social History Tobacco Use Types Packs/Day Years [...] encounter Miscellaneous Notes * Telephone Encounter - Kelli Watkins L.P.NDorothy - 02/14/2023 11:00 AM CDT Faxed DME to [facility] Darcy Ontiveros. * Telephone Encounter - Sandi Aguilar R.N. - 02/13/2023 1:36 PM CDT Fax received from Darcy Ontiveros LPN at [facility]. Aditya is in need of a new Brooke Sling. Will need a prescription to obtain through insurance. Thanks. Please Fax Fax # listed as [phone]. documented in this encounter Plan of Treatment Not on file documented as of this encounter Visit Diagnoses Diagnosis Palsy Cerebral Quadriplegic Spastic (HCC)- Primary documented in this encounter Additional Health Concerns Assessment Noted Time PHQ-9 Depression Total Score: 0 06/20/20 17 9:56 AM SOFTWARE ENGINEER documented as of this encounter Care Teams Door Core Assembler Relationship Specialty Start Date End Date Sienna Snider M.D. [address] [place] [phone] PCP - General Family Medicine 03/22/22 documented as of this encounter
--- OUTSIDE RECORDS SUMMARY | 2023-08-02 10:07 | XMS_ITS | Encounter Summary ---
Author Name Unknown Organization [facility] Address [address] [place] [address] Care Team Providers Care Lab Rn Name Role Phone Sienna Snider M.D. Primary Care Provider [phone] Encounter Details Date Type Department Care Team (Late st Contact Info) Description 01/02/2023 Clinical Communication Pharmacy Prior Auth [id number] Swetha Streeter I. Social History Tobacco Use Types Packs/Day Years [...] Total Score: 0 06/20/20 17 9:56 AM BRAKE DRUM MOLDER documented as of this encounter Care Teams Lab Rn Relationship Specialty Start Date End Date Sienna Snider M.D. [address] [place] [phone] PCP - General Family Medicine 03/22/22 documented as of this encounter
== END 2023-08-02 10:04 | disposition home or self-care (01) ==
LOC: WOUND 10:04
PROVIDERS: PCP Family Medicine; Visit Provider Physician Assistant
DX: L89.154 Pressure ulcer of sacral region, stage 4 (principal); L89.313 Pressure ulcer of right buttock, stage 3; G80.9 Cerebral palsy, unspecified; Z99.3 Dependence on wheelchair
CPT/HCPCS: 11042